=== PATIENT | female | born 1940 | race Caucasian/White ===

== ENCOUNTER 2019-05-11 10:57 | Outpatient (CLI) | payer MEDICARE, SELFPAY | END 2019-05-11 10:58 | disposition home or self-care (01) | LOC: ONCMED 11:01 | PROVIDERS: Family Provider Family Medicine; PCP Family Medicine; Visit Provider Internal Medicine Medical Oncology | DX: Z45.2 Encounter for adjustment and management of vascular access device (principal) | CPT/HCPCS: 96523 ==

== ENCOUNTER 2019-06-22 10:46 | Outpatient (CLI) | payer MEDICARE, SELFPAY ==
--- NOTE | 2019-06-22 11:17 | MM_ITS ---
WS: [id number] LEFT DIGITAL MAMMOGRAPHY WITH CAD CLINICAL INFORMATION: HX OF BREAST CA;RT MASTECTOMY HISTORY: Right mastectomy COMPARISON: May 24, 2018 TECHNIQUE: 3 views of the left breast were obtained. FINDINGS: Scattered fibroglandular densities of the left breast. Vascular calcification. Stable punctate and cl ustered calcifications. No suspicious focal mass, asymmetry, calcifications, or architectural distortion. No evidence of arvin gnancy. MM/[place] [id number] IMPRESSION: BI-RADS: 2-Benign FOLLOW UP: 1 Year Follow-up Recommend return to annual diagnostic mammography.
== END 2019-06-22 10:47 | disposition home or self-care (01) ==
LOC: ONCMED 10:53
PROVIDERS: Family Provider Family Medicine; PCP Family Medicine; Visit Provider Internal Medicine Medical Oncology
DX: Z85.3 Personal history of malignant neoplasm of breast (principal); Z90.11 Acquired absence of right breast and nipple; Z45.2 Encounter for adjustment and management of vascular access device
CPT/HCPCS: 77065; 96523

== ENCOUNTER 2019-08-29 09:24 | Outpatient (CLI) | payer MEDICARE, SELFPAY ==
[2019-08-29 09:51] LABS: Basophils % 0.2 %; Eosinophils # 0.1 10^3/uL (0.0-0.8); Eosinophils % 0.6 %; Hemoglobin 13.4 g/dL (11.5-15.3); Lymphocytes # 1.7 10^3/uL (0.8-4.8); Lymphocytes % 20.9 %; Mean Corpuscular HGB Conc 31.2 g/dL (30.0-36.0); Mean Corpuscular Hemoglobin 29.4 pg (28.0-34.0); Mean Corpuscular Volume 94.3 fL (81-99); Mean Platelet Volume 10.3 fL (7.4-10.4); Neutrophils # 5.5 10^3/uL (1.8-7.7); Neutrophils % 66.1 %; Nucleated Red Blood Cells % 0 %; Platelet Count 332 10^3/cmm (130-400); Red Blood Count 4.56 10^6/uL (4.1-5.3); Red Cell Distribution Width 14.3 % (12.1-15.1); White Blood Count 8.3 10^3/uL (4.0-10.0)
[2019-08-29 10:28] LABS: Carcinoembryonic Antigen 7.6 ng/mL (0.0-4.7)
[2019-08-29 10:40] LABS: Alanine Aminotransferase 9 U/L (0-33); Albumin Level 4.2 g/dL (3.5-5.2); Alkaline Phosphatase 124 IU/L (35-105); Anion Gap 18.4 (5-19); Aspartate Amino Transferase 13 U/L (0-32); Blood Urea Nitrogen 9 mg/dL (8-23); Calcium 10.9 mg/dL (8.5-10.5); Carbon Dioxide 26 mmol/L (22-29); Chloride 98 mmol/L (98-107); Globulin 3.6 g/dL (1.3-4.6); Glucose 108 mg/dL (65-115); Osmolality Calculated 283 mOsm/kg (285-295); Potassium 4.4 mmol/L (3.5-5.1); Sodium 138 mmol/L (136-145); Total Bilirubin 0.3 mg/dL (0.15-1.2); Total Protein 7.8 g/dL (6.6-8.7)
--- NOTE | 2019-08-30 13:30 | ONC FU_ITS ---
Dr. Baron Patient Follow-Up Note Patient: Marta Fraga Unit #: [id number]: 1940 Dicatated By: Kane Baron M.D.Date of Visit:Aug 29, 2019 Onc Med Follow-up/Prog Note Chief Complaint: Colon cancer/breast cancer. 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 She also has been treated for breast cancer. She was admitted to the hospital in October 2011 with suspected neoplasm in the ascending colon. She had been having constipation and hematochezia. CT showed a mass in the ascending colon extending a length of approximately 7 cm, consistent with neoplasm. There was a mild lymphadenopathy within the adjacent mesentery. There was also some question of thickening in the wall of the sigmoid colon. There was no obvious metastatic disease. She was found to have a significantly elevated CEA level at 162 ng/mL. She had attempted colonoscopy but the scope was not able to be advanced beyond the sigmoid colon due to a synchronous lesion in that area. She was then seen by Dr. García in [place] and she underwent hand assisted laparoscopic right hemicolectomy and open low anterior resection on 10/23/11. Pathology in the right colon showed low-grade mucinous adenocarcinoma measuring 6.5 x 5 x 1.7 cm. The tumor was invading through the muscularis propria into the peritoneal fat. There was involvement in 1 of 35 lymph nodes. The sigmoid colon showed diverticulitis with perforation and abscess formation. There were multiple polyps, which included both hyperplastic polyps and adenomas. Within the largest pedunculated polyp there was a well-differentiated invasive adenocarcinoma measuring 2.5 x 1.2 cm. There was invasion into the submucosa. There was no involvement in 28 lymph nodes. She was given adjuvant chemotherapy, initially with modified FOLFOX. However, she experienced severe neurotoxicity with oxaliplatin. It was omitted after the first cycle, and she then continued treatment with 5-FU/leucovorin only. She did receive a total of 12 cycles of treatment, which she completed in May 2012. Following completion of the chemotherapy, she continued followup with Dr. García. She has had multiple polyps on her surveillance colonoscopies, and she was initially placed on a 3-month followup schedule. It was later extended to 6 months, and most recently it was extended to one year. She has additional history of grade 2 infiltrating ductal carcinoma of the right breast, stage IIB, ER/OR negative and HER-2/angel positive. There has been no recurrence of her breast cancer following right modified radical mastectomy followed by adjuvant chemotherapy and prophylactic chest wall radiation, which was completed in 2001. Her other medical illnesses include COPD, osteoporosis, and depression. She has had evidence of vitamin D deficiency. She has history of smoking a pack to a pack and a half of cigarettes daily. She is seen for a scheduled visit. She says she recently had been deathly sick with strep infection and sinus infection. She was treated with antibiotic and steroid, and she is getting better now. She had fever with that illness, that has resolved. She continues to have limited activity tolerance. Her appetite is not real great. Her weight is down a few pounds. She has some night sweating, which is chronic. She says her breathing is not so good. She is on continuous oxygen. She has cough which is productive of grayish-white sputum. She has occasional burning across her chest. She has no GI complaints other than some constipation. Her bowels typically move about every other day. She has urinary frequency and some bladder incontinence. She has chronic pain, and she says she is also been having leg cramps. She has headache off and on. She sometimes has dizziness. She sometimes has numbness/tingling in her legs and feet. Medications: Advair Diskus 1 puff(s) (of 250-50 mcg/dose) Aerosol Powder, Breath Activated Inhalation b.i.d., B-6 1 (100 mg) Tablet Oral daily, B-Complex 1 Tablet Oral daily, Citalopram Hydrobromide 1 (10 mg) Tablet Oral at bedtime, [facility] Magnesium 1 (250 mg) Tablet Oral daily, DilTIAZem HCl ER 1 Tablet (of 120 mg) Capsule SR 12 HR Oral daily, HydroCHLOROthiazide 1 (25 mg) Tablet Oral daily, Multiple Vitamin 1 Tablet Oral daily, ProAir HFA 1 (108 (90 base) mcg/act) Aerosol, solution Inhalation PRN, sinex severe 1 spray(s) Liquid Nasal PRN, Spiriva HandiHaler 1 (18 mcg) Capsule Inhalation daily, Tylenol 1 - 2 (325 mg) Tablet Oral q 4 hours PRN, Vitamin D 1 (2000 Units) Capsule Oral daily Allergies: Codeine Sulfate Review of Systems: Constitutional - Her energy level is low. She is doing some light house work. Her appetite is poor and weight is down a few pounds from last visit. She had a fever a few weeks ago due to illness. No chills or hot flashes. She has chronic night sweats. ECOG score is 1, ENMT - No sinus congestion/drainage. No mouth sores. No sore throat or difficulty swallowing, Hematologic/Lymphatic - No abnormal bruising or bleeding, Respiratory - She gets short of breath with any activity. She wears continuous oxygen. She has a cough, it is productive in the mornings of a thick grayish phelgm. No pleuritic pain or hemoptysis, Cardiovascular - No angina pain. No palpitations, Gastrointestinal - No nausea or vomiting. No heartburn or acid reflux. No diarrhea or constipation. No blood in the stool or black stools, Genitourinary (F) - No dysuria or hematuria. She has urinary frequency. She has occasional incontinence, Musculoskeletal - She has chronic pain. She has been having leg cramps, Integumentary - No skin complications, Neurologic - She has occasional headache or dizziness. She has occasional numbness and tingling in her feet, Psychiatric - She is anxiety or depression. She has some difficulty sleeping. Vital Signs: Performed on Aug 29, 2019 10:29 Height - 67.00 in Weight - 200.0 lbs (LOW) BSA - 2.02 sq.m BMI - 31.32 (HIGH) Temperature - 97.4 F (LOW) Pulse - 88 /min Respiration - 24 /min BP - 119/66 mm(hg) O2 Sat - 94 % (LOW) Pain - 0 Physical Examination: Constitutional - She appears chronically ill, and she appears short of breath with effort, Eyes - Sclerae nonicteric. Conjunctivae clear, ENMT - No lesions noted in the oral cavity, Hematologic/Lymphatic - No cervical or clavicular adenopathy, Respiratory - Lungs sound clear with markedly diminished air movement bilaterally, Cardiovascular - Heart rhythm is regular. There is no murmur, gallop, or rub noted, Breasts - The right chest wall shows no lesions. The left breast shows no mass. There is no axillary adenopathy, Abdomen - Soft. Liver and spleen are not enlarged. There is no abdominal mass or ascites noted. There is no inguinal adenopathy, Extremities - There are mild venous stasis changes. There is currently no edema, Neurologic - No focal neurologic deficits noted. Lab/Imaging: Test performed on Aug 29, 2019 09:35 Sodium 138 mmol/L Potassium 4.4 mmol/L Chloride 98 mmol/L CO2 26 mmol/L Anion Gap 18.4 BUN 9 mg/dL Creatinine 0.6 mg/dL Cr Clearance (Est) 112.4600 mL/min Glucose 108 mg/dL Calcium 10.9 mg/dL Protein, Total 7.8 g/dL Albumin 4.2 g/dL Globulin 3.6 g/dL Bilirubin, Total 0.3 mg/dL ALT (SGPT) 9 U/L AST (SGOT) 13 U/L Alkaline Phosphatase 124 IU/L WBC 8.3 10 3/uL RBC 4.56 10 6/uL HGB 13.4 g/dL HCT 43.0 % MCV 94.3 fL MCH 29.4 pg MCHC 31.2 g/dL RDW 14.3 % Platelet Count 332 10 3/cmm MPV 10.3 fL Neutrophils 5.5 10 3/uL Lymphocytes 1.7 10 3/uL Monocytes 1.0 10 3/uL Eosinophils 0.1 10 3/uL Basophils 0.0 10 3/uL Neutrophil % 66.1 % Lymphocyte % 20.9 % Monocyte % 12.0 % Eosinophil % 0.6 % Basophils % 0.2 % CEA 7.6 ng/mL Impression: 1. Patient with low-grade adenocarcinoma the ascending colon, stage IIIB, with synchronous adenocarcinoma of the sigmoid colon, stage I. 2. Treatment included hand-assisted laparoscopic right hemicolectomy and an open low anterior resection in October 2011 followed by adjuvant chemotherapy, completed in May 2012. 3. She has had multiple polyps on surveillance colonoscopy, and she has continued close surveillance. 4. She has a prior history of grade 2 infiltrating duct carcinoma the right breast, stage IIB, ER/OR negative and HER-2/angel positive. Treatment included right modified radical mastectomy followed by adjuvant chemotherapy and prophylactic chest wall radiation, completed in 2001. Her other medical illnesses include: 5. COPD with continued smoking. 6. Osteoporosis. 7. Vitamin D deficiency. 8. Anxiety/depression. During follow-up she has had somewhat marginal performance status, mainly due to underlying COPD. She has had a mildly elevated CEA level, which I have assumed is related to her smoking history. Thus far there has been no documented recurrence of the breast cancer or colon cancer. Plan: She remains on observation/expectant management. I will see her again in one year. Signed By: Kane Baron M.D. <<Signature on File>>
== END 2019-08-29 09:25 | disposition home or self-care (01) ==
LOC: ONCMED 09:26
PROVIDERS: Family Provider Family Medicine; PCP Family Medicine; Visit Provider Internal Medicine Medical Oncology
DX: Z08 Encounter for follow-up examination after completed treatment for malignant neoplasm (principal); Z85.3 Personal history of malignant neoplasm of breast; Z85.038 Personal history of other malignant neoplasm of large intestine; R97.0 Elevated carcinoembryonic antigen [CEA]; Z90.11 Acquired absence of right breast and nipple; Z92.21 Personal history of antineoplastic chemotherapy; Z92.3 Personal history of irradiation; J44.9 Chronic obstructive pulmonary disease, unspecified; F17.210 Nicotine dependence, cigarettes, uncomplicated; M81.0 Age-related osteoporosis without current pathological fracture; E55.9 Vitamin D deficiency, unspecified; F41.8 Other specified anxiety disorders; Z86.010 Personal history of colon polyps
CPT/HCPCS: 36591; 80053; 82378; 85025; G0463

== ENCOUNTER 2019-10-25 13:31 | Outpatient (CLI) | payer MEDICARE, SELFPAY | END 2019-10-25 13:32 | disposition home or self-care (01) | LOC: ONCMED 13:34 | PROVIDERS: PCP Family Medicine; Visit Provider Nurse Practitioner | DX: Z45.2 Encounter for adjustment and management of vascular access device (principal) | CPT/HCPCS: 96523 ==

== ENCOUNTER 2019-11-21 11:00 | Outpatient (CLI) | payer MEDICARE, SELFPAY | END 2019-11-21 11:01 | disposition home or self-care (01) | LOC: ONCMED 11:07 | PROVIDERS: PCP Family Medicine; Visit Provider Internal Medicine Medical Oncology | DX: Z45.2 Encounter for adjustment and management of vascular access device (principal) | CPT/HCPCS: 96523 ==

== ENCOUNTER 2020-01-09 10:51 | Outpatient (CLI) | payer MEDICARE, SELFPAY | END 2020-01-09 10:52 | disposition home or self-care (01) | LOC: ONCMED 10:53 | PROVIDERS: PCP Family Medicine; Visit Provider Internal Medicine Medical Oncology | DX: Z45.2 Encounter for adjustment and management of vascular access device (principal) | CPT/HCPCS: 96523 ==

== ENCOUNTER 2020-02-28 11:02 | Outpatient (CLI) | payer MEDICARE, SELFPAY | END 2020-02-28 11:03 | disposition home or self-care (01) | LOC: ONCMED 11:04 | PROVIDERS: PCP Family Medicine; Visit Provider Internal Medicine Medical Oncology | DX: Z45.2 Encounter for adjustment and management of vascular access device (principal) | CPT/HCPCS: 96523 ==

== ENCOUNTER 2020-03-26 10:38 | Outpatient (CLI) | payer MEDICARE, SELFPAY | END 2020-03-26 10:39 | disposition home or self-care (01) | LOC: ONCMED 10:42 | PROVIDERS: PCP Family Medicine; Visit Provider Internal Medicine Medical Oncology | DX: Z45.2 Encounter for adjustment and management of vascular access device (principal) | CPT/HCPCS: 96523 ==

== ENCOUNTER → 2020-07-19 09:09 | Outpatient (BNVA) | payer MEDICARE, SELFPAY | PROVIDERS: PCP Family Medicine; Visit Provider Surgery | DX: Z20.828 Contact with and (suspected) exposure to other viral communicable diseases (principal) | CPT/HCPCS: 87635 ==

== ENCOUNTER 2020-07-25 08:58 | Day surgery (SDC) | payer MEDICARE, SELFPAY ==
[2020-07-24 15:00] VITALS: BMI 30.5
--- NOTE | 2020-07-25 | SCC_ITS ---
Procedure Done: 1. Removal of malfunctioning/occluded Port-A-Cath. 2. Placement of new Port-A-Cath into the left subclavian vein with intraoperative fluoroscopy interpretation. 56.7 seconds of fluoroscopic guidance, for a cumulative dose of 4.72 mGy, was provided to Dr. Barry by the radiology department. C-arm images of the chest were saved for the patient's permanent record. PILY
--- NOTE | 2020-07-25 09:20 | P.HPUD_ITS ---
Surgery/Procedure H&P Update DATE OF PROCEDURE: July 25, 2020 DATE H&P PERFORMED: 07/16/20 H&P UPDATE INFORMATION: No changes to prior documentation PLANNED PROCEDURE: Operation Date: 07/25/20 10:25 Proposed Procedures p Portacath Removal 60463 I87.8 K43.2 T82.519A(Not Applicable) - Edgar Barry MD s Portacath Placement 66887 I87.8 K43.2 T82.519A(Not Applicable) - Edgar Barry MD
--- NOTE | 2020-07-25 09:20 | W.PM.OPSUD ---
Surgery/Procedure H&P Update DATE OF PROCEDURE: July 25, 2020 DATE H&P PERFORMED: 07/16/20 H&P UPDATE INFORMATION: No changes to prior documentation PLANNED PROCEDURE: Operation Date: 07/25/20 10:25 Proposed Procedures p Portacath Removal 29540 I87.8 K43.2 T82.519A(Not Applicable) - Edgar Barry MD s Portacath Placement [id number] I87.8 K43.2 T82.519A(Not Applicable) - Edgar Barry MD
[2020-07-25 09:25] VITALS: BP 151/65; PULSE 87; RESP 18; TEMP 37.1; O2SAT 96
--- NOTE | 2020-07-25 09:55 | ANES.PREANE2 ---
Pre-Anesthetic Assessment Pre-Anesthetic Assessment: Height/Weight: Height 1.7 m Weight 88.451 kg Temp Pulse Resp BP Pulse Ox 98.7 F 87 18 151/65 96 07/25/20 09:25 07/25/20 09:25 07/25/20 09:25 07/25/20 09:25 07/25/20 09:25 Preop Diagnosis: malignant neoplasm Proposed Procedure: Operation Date: 07/25/20 10:25 Proposed Procedures p Portacath Removal 29196 I87.8 K43.2 T82.519A(Not Applicable) - Edgar Barry MD s Portacath Placement 50229 I87.8 K43.2 T82.519A(Not Applicable) - Edgar Barry MD Familial anesthetic complications: none Was Beta Mina taken within 24 hours: N/A Was Clonidine taken within 24 hours: N/A Last intake: NPO Social: Social History: Tobacco and No alcohol Exam: Pre-Anes Outpt Exam: alert, oriented x 3, clear to auscultation bilaterally and regular rate & rhythm Airway: Cervical ROM: WNL MP: 3 Dentition: False Pulmonary: Pulmonary: COPD (O2 ) CV/HEM: CV/HEM: Afib (on diltiazem) Anesthetic Plan: ASA status: 4 Anesthesia: MAC Risk of > 500 ml blood loss (7ml/kg in children): No PFSH Anesthesia PFSH: Social History (Updated 07/24/20 @ 14:53 by Nadine Parra) Smoking and tobacco status: current every day smoker cigarettes Number of cigarettes per day: >20 Data Anesthesia Cardiac Studies: No Data to Display
[2020-07-25] MEDS: sodium chloride 0.9% 1,000 ML 30 ML IV (10:13)
--- NOTE | 2020-07-25 10:40 | SC_ITS ---
WS: [id number] Exam: C-arm FL for CVA [id number] Date/Time of Exam: 07/25/2020 10:40 AM Reason For Exam: port a cath Limited AP C-arm image of the upper left chest is submitted for evaluation. A left subclavian port has been placed and appears to end in the region of the lower one third of the SVC. SC/C-arm FL for CVA [id number] IMPRESSION: 1. Left subclavian port probably ending in the region of the lower one third of the SVC. No other significant finding on this limited image.
--- NOTE | 2020-07-25 10:51 | SUR.OPER ---
1040 port a cath removed and inspected by dr diaz. disposed of in biohazard
--- NOTE | 2020-07-25 10:58 | P.OP_ITS ---
Operative Report Date of procedure: July 25, 2020 Pre-op Diagnosis: 1. Mechanical complication of Port-A-Cath.2. Poor peripheral venous acces Post-op diagnosis: same Procedure Done: 1. Removal of malfunctioning/occluded Port-A-Cath. 2. Placement of new Port-A-Cath into the left subclavian vein with intraoperative fluoroscopy interpretation. Specimens removed/disposition: None sent. Surgeon: Edgar Barry Anesthesia: MAC Estimated blood loss (mL): 5 Complications: None. Condition: stable Disposition: same day Procedure: The patient was brought to the Operating Room and was placed in a supine position on the operating room table. A monitored anesthetic was induced. The anterior surface of the chest and neck were prepped and draped in a sterile fashion. A combination of 1% lidocaine with 1 to 100,000 parts epinephrine and 0.5% bupivacaine was used for local anesthesia throughout the procedures. The previous transverse scar just above the Port-A-Cath in the left subclavian region was reopened using a scalpel. Cautery was used to divide the subcutaneous tissue and the Port-A-Cath hub and tubing were exposed. A small incision was then made up underneath the clavicle over the tract of the Port-A-Cath tubing. The tubing was disconnected from the port and was brought up through the smaller incision. The J-wire was passed down the tubing in an attempt to keep the same site in the subclavian vein accessed. Despite multiple attempts, it became clear that the Port-A-Cath tubing was occluded and the procedure was finally abandoned. The old tubing was removed. The old Port-A-Cath was then removed from its pocket using cautery. The fibrous capsule that had surround the port was also excised using cautery and the Port-A-Cath site was irrigated. The left subclavian vein was reaccessed on the first pass with a needle and syringe as evidenced by the return of dark nonpulsatile blood. The J-wire was passed down the needle and the needle was removed. The C-arm was positioned and showed that the wire was actually extending up the left internal jugular vein. Under fluoroscopy the wire was withdrawn and was eventually manipulated down the superior vena cava. The new Port-A-Cath tubing was passed from the incision through the subcutaneous layer to the exit point of the J-wire. The tubing was attached to the port and was cut to an appropriate length. The introducer and sheath were passed over the J-wire, and the introducer and J-wire were removed. The Port-A-Cath tubing was passed down the sheath, which was torn away. The C- arm was positioned and showed good placement of the Port-A-Cath tubing tip in the superior vena cava. The port aspirated easily and flushed well with hep flush solution. The port was sewn in place with some interrupted sutures of 3-0 PDS. The transverse incision was closed at the dermis using a single inverted suture of 3-0 Vicryl and the skin was approximated using a running subcuticular suture of 4-0 Vicryl. The small incision under the clavicle at the previous insertion site of the J wire was closed using a single inverted suture of 4-0 Vicryl. Benzoin and Steri-Strips were placed over the incisions and a sterile bandage followed. The patient was taken to the recovery area in stable condition postoperatively. INTRAOPERATIVE FLUOROSCOPY FINDINGS: Intraoperative fluoroscopic images of a Port-A-Cath placement were reviewed. An initial image reveals a J-wire entering the left subclavian region and extending up the left internal jugular vein. Subsequent images revealed the wire extending down the vena cava. Subclavian vein and extending down the vena cava. Further images reveal a Port-A-Cath on the left side of the chest with its tubing tip in good location in the superior vena cava. No obvious pneumothorax is identified.
[2020-07-25 11:03] VITALS: BP 152/61; PULSE 94; RESP 16; TEMP 36.6; O2SAT 96
[2020-07-25 11:05] VITALS: BP 152/67; PULSE 97; RESP 20; O2SAT 93
[2020-07-25 11:11] VITALS: BP 145/62; PULSE 92; RESP 20; TEMP 36.8; O2SAT 95
[2020-07-25 11:25] VITALS: BP 141/76; PULSE 95; RESP 18; O2SAT 93
[2020-07-25 11:55] VITALS: BP 141/62; PULSE 87; RESP 20; TEMP 36.7; O2SAT 92
[2020-07-25] MEDS: ondansetron 2 mg/ML SDV 2 mL 4 MG IVP (11:57)
--- NOTE | 2020-07-25 20:52 | ANE.PACU2 ---
Inpatient post-anesthesia follow up: Airway intact: Yes Vital signs: Temperature 98.0 F Pulse Rate 87 Respiratory Rate 20 Blood Pressure 141/62 Pulse Oximetry 92 Oxygen Delivery Me thod Nasal Cannula Oxygen Flow Rate 3 Fraction of Inspir ed Oxygen Hydration adequate: Yes Nausea and vomiting: No Pain level: 2 Mental status: Baseline
== END 2020-07-25 12:20 | disposition home or self-care (01) ==
PROVIDERS: PCP Family Medicine; Visit Provider Surgery
PROC: (CPT 36589; principal; 2020-07-25 10:15)
PROC: (CPT 36582; 2020-07-25 10:15)
DX: T82.519A Breakdown (mechanical) of unspecified cardiac and vascular devices and implants, initial encounter (principal); Z85.038 Personal history of other malignant neoplasm of large intestine; Z85.3 Personal history of malignant neoplasm of breast; J43.9 Emphysema, unspecified; M81.0 Age-related osteoporosis without current pathological fracture; F17.210 Nicotine dependence, cigarettes, uncomplicated
CPT/HCPCS: 36582; 12345; 77001; C1788; J0690; J2405; J2704; J3010; J3490; J7030

== ENCOUNTER 2020-08-21 09:32 | Outpatient (CLI) | payer MEDICARE, SELFPAY ==
--- NOTE | 2020-08-21 09:40 | MM_ITS ---
WS: [id number] DIAGNOSTIC LEFT DIGITAL MAMMOGRAM WITH CAD HISTORY: HX OF BREAST CA;RT MASTECTOMY COMPARISON: None available. Technique: CC, MLO and ML views. Breast composition: There are scattered areas of fibroglandular density. Benign round and broad calc ifications are stable. No mass or distortion. MM/[place] [id number] IMPRESSION: BI-RADS: 2-Benign FOLLOW UP: 1 Year Follow-up
== END 2020-08-21 09:33 | disposition home or self-care (01) ==
PROVIDERS: Absent Provider Internal Medicine Medical Oncology; PCP Family Medicine; Visit Provider Nurse Practitioner
DX: Z45.2 Encounter for adjustment and management of vascular access device (principal); Z85.3 Personal history of malignant neoplasm of breast
CPT/HCPCS: 77065; 96523

== ENCOUNTER 2020-09-10 09:47 | Outpatient (CLI) | payer MEDICARE, SELFPAY ==
[2020-09-10 12:42] LABS: Basophils % 0.3 %; Eosinophils # 0.1 10^3/uL (0.0-0.8); Hematocrit 40.1 % (37.0-47.0); Hemoglobin 12.7 g/dL (11.5-15.3); Lymphocytes # 1.9 10^3/uL (0.8-4.8); Lymphocytes % 24.4 %; Mean Corpuscular HGB Conc 31.7 g/dL (30.0-36.0); Mean Corpuscular Hemoglobin 30.5 pg (28.0-34.0); Mean Corpuscular Volume 96.2 fL (81-99); Mean Platelet Volume 10.6 fL (7.4-10.4); Monocytes # 0.9 10^3/uL (0.2-0.9); Monocytes % 11.8 %; Neutrophils # 4.88 10^3/uL (1.8-7.7); Neutrophils % 62.4 %; Nucleated Red Blood Cells % 0 %; Platelet Count 314 10^3/cmm (130-400); Red Blood Count 4.17 10^6/uL (4.1-5.3); Red Cell Distribution Width 13.7 % (12.1-15.1); White Blood Count 7.8 10^3/uL (4.0-10.0)
[2020-09-10 13:20] LABS: 25 Hydroxy Vitamin D 17 ng/mL (30-100); Alanine Aminotransferase 8 U/L (0-33); Albumin Level 3.7 g/dL (3.5-5.2); Alkaline Phosphatase 116 IU/L (35-105); Anion Gap 12.1 (5-19); Aspartate Amino Transferase 13 U/L (0-32); Blood Urea Nitrogen 10 mg/dL (8-23); Calcium 10.3 mg/dL (8.5-10.5); Carbon Dioxide 30 mmol/L (22-29); Chloride 100 mmol/L (98-107); Globulin 3.1 g/dL (1.3-4.6); Glucose 88 mg/dL (65-115); Osmolality Calculated 284 mOsm/kg (285-295); Potassium 4.1 mmol/L (3.5-5.1); Sodium 138 mmol/L (136-145); Total Bilirubin 0.4 mg/dL (0.15-1.2); Total Protein 6.8 g/dL (6.6-8.7)
[2020-09-10 14:36] LABS: Carcinoembryonic Antigen 6.4 ng/mL (0.0-4.7)
--- NOTE | 2020-09-14 11:31 | ONC FU_ITS ---
Dr. Baron Patient Follow-Up Note Patient: Marta Fraga Unit #: [id number]: [id number] Dicatated By: Kane Baron M.D.Date of Visit:September 10, 2020 Onc Med Follow-up/Prog Note Chief Complaint: Colon cancer/breast cancer. 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 She also has been treated for breast cancer. She was admitted to the hospital in October 2011 with suspected neoplasm in the ascending colon. She had been having constipation and hematochezia. CT showed a mass in the ascending colon extending a length of approximately 7 cm, consistent with neoplasm. There was a mild lymphadenopathy within the adjacent mesentery. There was also some question of thickening in the wall of the sigmoid colon. There was no obvious metastatic disease. She was found to have a significantly elevated CEA level at 162 ng/mL. She had attempted colonoscopy but the scope was not able to be advanced beyond the sigmoid colon due to a synchronous lesion in that area. She was then seen by Dr. García in [place] and she underwent hand assisted laparoscopic right hemicolectomy and open low anterior resection on 10/23/11. Pathology in the right colon showed low-grade mucinous adenocarcinoma measuring 6.5 x 5 x 1.7 cm. The tumor was invading through the muscularis propria into the peritoneal fat. There was involvement in 1 of 35 lymph nodes. The sigmoid colon showed diverticulitis with perforation and abscess formation. There were multiple polyps, which included both hyperplastic polyps and adenomas. Within the largest pedunculated polyp there was a well-differentiated invasive adenocarcinoma measuring 2.5 x 1.2 cm. There was invasion into the submucosa. There was no involvement in 28 lymph nodes. She was given adjuvant chemotherapy, initially with modified FOLFOX. However, she experienced severe neurotoxicity with oxaliplatin. It was omitted after the first cycle, and she then continued treatment with 5-FU/leucovorin only. She did receive a total of 12 cycles of treatment, which she completed in May 2012. Following completion of the chemotherapy, she continued followup with Dr. García. She has had multiple polyps on her surveillance colonoscopies, and she was initially placed on a 3-month followup schedule. It was later extended to 6 months, and most recently it was extended to one year. She has additional history of grade 2 infiltrating ductal carcinoma of the right breast, stage IIB, ER/MN negative and HER-2/angel positive. There has been no recurrence of her breast cancer following right modified radical mastectomy followed by adjuvant chemotherapy and prophylactic chest wall radiation, which was completed in 2001. Her other medical illnesses include COPD, osteoporosis, and depression. She has had evidence of vitamin D deficiency. She has history of smoking a pack to a pack and a half of cigarettes daily. She is seen for a scheduled visit. She reports having a lot of mental fatigue related to her son having methamphetamine addiction. She is fighting depression over that. She continues to have very limited activity tolerance. She has a little bit of housework. ECOG score is 2. Appetite is variable. She says she does eat. She does not have fever, night sweats, or hot flashes. She has shortness of breath and she is on continuous oxygen. She says her breathing is about the same. She says she has no more cough than usual. She does not complain of chest pain. She has occasional acid reflux. Her bowels fluctuate between diarrhea and constipation. She is scheduled to have a colonoscopy in October. Bladder function remains adequate. She has some chronic pain, particularly in the lower extremities, and she also complains that she has been having swelling in her legs and feet. She has some orthostatic lightheadedness. She has numbness and tingling in her hands and feet. Medications: Advair Diskus 1 puff(s) (of 250-50 mcg/dose) Aerosol Powder, Breath Activated Inhalation b.i.d., B-6 1 (100 mg) Tablet Oral daily, B-Complex 1 Tablet Oral daily, Citalopram Hydrobromide 1 (10 mg) Tablet Oral at bedtime, [facility] Magnesium 1 (250 mg) Tablet Oral daily, DilTIAZem HCl ER 1 Tablet (of 120 mg) Capsule SR 12 HR Oral daily, HydroCHLOROthiazide 1 (25 mg) Tablet Oral daily, Multiple Vitamin 1 Tablet Oral daily, ProAir HFA 1 (108 (90 base) mcg/act) Aerosol, solution Inhalation PRN, sinex severe 1 spray(s) Liquid Nasal PRN, Spiriva HandiHaler 1 (18 mcg) Capsule Inhalation daily, Tylenol 1 - 2 (325 mg) Tablet Oral q 4 hours PRN, Vitamin D 1 (2000 Units) Capsule Oral daily Allergies: Codeine Sulfate Vital Signs: Performed on September 10, 2020 12:17 Height - 67.00 in Weight - 200.2 lbs (HIGH) BSA - 2.02 sq.m BMI - 31.36 (HIGH) Temperature - 98.7 F Pulse - 91 /min Respiration - 18 /min BP - 156/78 mm(hg) (HIGH) O2 Sat - 92 % (LOW) Pain - 0 Fatigue - 6 Physical Examination: Constitutional - She appears chronically ill, Eyes - Sclerae nonicteric. Conjunctivae clear, ENMT - No lesions noted in the oral cavity, Hematologic/Lymphatic - No cervical, clavicular, or axillary adenopathy, Respiratory - Lungs show diminished air movement bilaterally. There is mild expiratory wheezing, Cardiovascular - Heart rhythm is regular. There is a II/ systolic murmur. There is no gallop or rub noted, Abdomen - Soft. Liver and spleen are not enlarged. There is no abdominal mass or ascites noted. There is no inguinal adenopathy, Extremities - There are mild venous stasis changes. There is mild lower extremity edema, Neurologic - No focal neurologic deficits noted. Lab/Imaging: Test performed on September 10, 2020 10:10 Sodium 138 mmol/L Vitamin D (25-Hydroxy), Total 17 ng/mL Potassium 4.1 mmol/L Chloride 100 mmol/L CO2 30 mmol/L Anion Gap 12.1 BUN 10 mg/dL Creatinine 0.7 mg/dL Cr Clearance (Est) 94.9500 mL/min Glucose 88 mg/dL Osmolality - Calculated 284 mOsm/kg Calcium 10.3 mg/dL Protein, Total 6.8 g/dL Albumin 3.7 g/dL Globulin 3.1 g/dL Bilirubin, Total 0.4 mg/dL ALT (SGPT) 8 U/L AST (SGOT) 13 U/L Alkaline Phosphatase 116 IU/L WBC 7.8 10 3/uL RBC 4.17 10 6/uL HGB 12.7 g/dL HCT 40.1 % MCV 96.2 fL MCH 30.5 pg MCHC 31.7 g/dL RDW 13.7 % Platelet Count 314 10 3/cmm MPV 10.6 fL Neutrophils 4.88 10 3/uL Lymphocytes 1.9 10 3/uL Monocytes 0.9 10 3/uL Eosinophils 0.1 10 3/uL Basophils 0.0 10 3/uL Neutrophil % 62.4 % Lymphocyte % 24.4 % Monocyte % 11.8 % Eosinophil % 1.0 % Basophils % 0.3 % NRBC % 0 % CEA 6.4 ng/mL Problem List: 1. Low-grade adenocarcinoma the ascending colon, stage IIIB, with synchronous adenocarcinoma of the sigmoid colon, stage I. 2. She has had multiple polyps on surveillance colonoscopy, and she has continued close surveillance. 3. She has a prior history of grade 2 infiltrating duct carcinoma the right breast, stage IIB, ER/MN negative and HER-2/angel positive. Treatment included right modified radical mastectomy followed by adjuvant chemotherapy and prophylactic chest wall radiation, completed in 2001. 4. COPD with continued smoking. 5. Osteoporosis. 6. Vitamin D deficiency. 7. Anxiety/depression. Problems Addressed with this Encounter and Plan: 1. Patient with low-grade adenocarcinoma the ascending colon, stage IIIB, with synchronous adenocarcinoma of the sigmoid colon, stage I. Treatment included hand-assisted laparoscopic right hemicolectomy and an open low anterior resection in October 2011 followed by adjuvant chemotherapy, completed in May 2012. She has had multiple polyps on surveillance colonoscopy, and she has continued close surveillance. However, thus far during follow-up, there has been no evidence of recurrence of the colon cancer. She remains on observation/expectant management. I will see her again in one year. 2. She has a prior history of grade 2 infiltrating duct carcinoma the right breast, stage IIB, ER/MN negative and HER-2/angel positive. Treatment included right modified radical mastectomy followed by adjuvant chemotherapy and prophylactic chest wall radiation, completed in 2001. There has been no evidence of recurrence of the breast cancer. She continues surveillance with yearly unilateral left diagnostic mammogram. Signed By: Kane Baron M.D. <<Signature on File>>
== END 2020-09-10 09:48 | disposition home or self-care (01) ==
LOC: ONCMED 09:50
PROVIDERS: PCP Family Medicine; Visit Provider Internal Medicine Medical Oncology
DX: Z08 Encounter for follow-up examination after completed treatment for malignant neoplasm (principal); Z85.038 Personal history of other malignant neoplasm of large intestine; Z85.3 Personal history of malignant neoplasm of breast; J44.9 Chronic obstructive pulmonary disease, unspecified; F17.210 Nicotine dependence, cigarettes, uncomplicated; M81.0 Age-related osteoporosis without current pathological fracture; E55.9 Vitamin D deficiency, unspecified; F41.9 Anxiety disorder, unspecified; F32.9 Major depressive disorder, single episode, unspecified; Z79.899 Other long term (current) drug therapy
CPT/HCPCS: 36591; 80053; 82306; 82378; 85025; 99214

== ENCOUNTER 2020-11-11 11:12 | Emergency (ER) | payer MEDICARE, SELFPAY ==
--- NOTE | 2020-11-11 | XRR_ITS ---
[facility] Final Radiology Report Call: [phone] assistance Online chat: [email or web address] Name: BIRGIT BEAULIEU Age: 80Years F Date: 11/11/2020 SSN: -- : 1940 Study: XR FOREARM Requesting Physician: Love Kaur Images: 2 Add?l Studies: Provided Clinical History: PROCEDURE INFORMATION: Exam: XR Right Forearm Exam date and time: 11/11/2020 12:45 PM Age: 80 years old Clinical indication: Injury or trauma; Blunt trauma (contusions or hematomas); Arm, lower; Right; Injury details: Fall today, RT. Distal forearm pain and deformity/swelling. TECHNIQUE: Imaging protocol: XR Right forearm. Views: 2 views. COMPARISON: OT C-arm [place] for CVA [id number] 07/25/2020 10:44 AM FINDINGS: Bones/joints: There is a comminuted fracture of the distal right radius which extends to the radiocarpal joint. There is dorsal displacement of the distal fracture fragment. There is also a fracture of the distal ulnar diaphysis and ulnar styloid. There is osteopenia. Soft tissues: There is soft tissue swelling at the fracture site. IMPRESSION: There are fractures of the distal radius and ulna. Thank you for allowing us to participate in the care of your patient. Dictated and Authenticated by: Joe Sorensen MD 11/11/2020 1:47 PM Central Time ([place] & [place]) PILY
[2020-11-11 11:17] VITALS: BP 135/79; PULSE 78; RESP 22; TEMP 36.3; O2SAT 94; BMI 29.1
[2020-11-11] MEDS: HYDROcodone-acetaminophen 7.5-325 mg Tablet 1 TAB PO (14:16)
--- NOTE | 2020-11-11 14:17 | W.ED.EXTPRO ---
HPI - Extremity Problem General: Chief complaint: Extremity Injury, Upper Stated complaint: Fall, R arm pain Time Seen by Provider: 11/11/20 13:29 Source: patient Mode of arrival: ambulatory Limitations: no limitations History of Present Illness: HPI Narrative: 80 yo female patient presents to ER with right wrist pain. Pt states she tripped over cord and landed on her arm. Pt states she did not hit head. denies bein on blood thinners. denies loc denies neck pain. Associated symptoms: Deny chest pain, fever(s) or rash Review of Systems Const: Denies: fever(s), chills, body aches, change in appetite, change in weight, fatigue, malaise or diaphoresis Eyes: Denies: change in vision, blurry vision, blind spots, photophobia, eye discomfort, eye discharge, eye redness, floaters or seeing flashes ENMT: Denies: throat pain, uvular edema, enlarged tonsils, odynophagia, hoarseness, mouth pain, swelling of lips/tongue, oral sores, bleeding gums, dental pain, dry mouth, ear or mastoid pain, ear discharge, change in hearing, tinnitus, disequilibrium, nasal discharge, nasal congestion, post nasal drip or sinus pain Card: Denies: chest pain, palpitations, irregular heart rhythm, edema, swelling of feet/ankles, lightheadedness, syncope, pre-syncope, dyspnea on exertion, orthopnea, leg pain with exertion or acrocyanosis Resp: Denies: dyspnea, productive cough, non-productive cough, wheezing, stridor, pain on inspiration, change in phlegm color, hemoptysis or chest congestion GI: Denies: abdominal pain, nausea, vomiting, hematemesis, dysphagia, diarrhea, constipation, GI cramping, change in bowel habits or rectal pain : Denies: flank pain, difficulty voiding, dysuria, urinary frequency, urinary urgency, urinary hesitancy or hematuria Musc: Reports: extremity pain; Denies: neck pain, back pain, extremity swelling, joint pain, joint swelling, joint redness, joint warmth or deformity Skin/Breast: Denies: rash, pruritus, erythema, sores, new lesions, changes in skin color or dry skin Neuro: Denies: headache(s), numbness in extremities, weakness in extremities, sensory changes, lack of coordination, difficulty walking, frequent falls, dizziness, vertigo, confusion, behavioral changes, Slurred speech present, difficulty communicating thoughts or seizure-like activity Psych: Denies: anxiety, depression, suicidal ideation or homicidal ideation Endo: Denies: polyuria, polydipsia, tired all the time, cold intolerance, excessive sweating, flushing, hot flashes or heat intolerance Fernando/Lymph: Denies: easy bruising, easy bleeding, petechiae, purpura, enlarged lymph nodes or tender lymph nodes All/Imm: Denies: urticaria, throat swelling, tongue swelling, facial swelling, acute wheezing or itchy eyes PFSH ED PFSH: Social History Smoking and tobacco status: current every day smoker cigarettes Physical Exam Const: COMMON NORMALS: no acute distress, patient oriented x3, healthy appearing, alert and well nourished GENERAL APPEARANCE: cooperative, comfortable, well kempt and well developed; not ill appearing ORIENTATION/CONSCIOUSNESS: Yes awake, Yes oriented to person, Yes oriented to place and Yes oriented to time HENMT: COMMON NORMALS: normocephalic, atraumatic, hearing grossly normal bilaterally, external ears normal, EAC's normal, TM's normal bilaterally, Normal external nose present, Normal nasal mucous membranes and turbinates present and moist oral mucous membranes HEAD & SCALP: normal to inspection, normocephalic and atraumatic FACE & SINUS: normal facial exam, sinuses nontender and face symmetric NOSE: Normal external nose present, Normal nares present, Normal nasal mucous membranes and turbinates present, No nasal discharge present and Abnormal external nose present EXTERNAL EAR: Yes external ears normal and Yes mastoids normal EXTERNAL AUDITORY CANAL: EAC's normal TYMPANIC MEMBRANE: TM's normal bilaterally MOUTH: Normal oral and palatal mucosa present, lip normal, tongue normal and Normal salivary glands and ducts present THROAT: no uvular edema Eye: COMMON NORMALS: Equal, round and reactive pupils present, EOMs intact bilaterally, conjunctivae normal, no scleral icterus and no papilledema GENERAL EYE: appearance normal, both eyes and all related structures EYELID: eyelids normal CONJUNCTIVA: Yes conjunctivae normal SCLERA: sclerae normal CORNEA: Yes corneas normal PUPIL: Yes Equal, round and reactive pupils present DIRECT OPHTHALMOSCOPY: Yes no papilledema Neck/C-Spine: COMMON NORMALS: full ROM, no lymphadenopathy, supple, no meningeal signs, no JVD and Thyroid normal GENERAL: Yes normal visual inspection and Yes trachea midline THYROID: Thyroid normal CERVICAL SPINE: Yes cervical ROM normal Lymph: LYMPHATIC: no lymphadenopathy noted and no lymphedema noted Chest: COMMONS NORMALS: normal inspection of the chest and normal palpation of entire chest wall Resp: COMMON NORMALS: normal respiratory effort, No retractions, No use of accessory muscles and clear to auscultation bilaterally EFFORT & INSPECTION: Yes able to speak in complete sentences and Yes symmetric chest movement AUSCULTATION: clear to auscultation bilaterally Cardio: COMMON NORMALS: no JVD, regular rate and regular rhythm RATE: regular rate RHYTHM: regular rhythm GI: COMMON NORMALS: Normal to inspection, nondistended, normoactive bowel sounds present, Soft to palpation, non-tender, No hepatosplenomegaly present, no masses and no bruits INSPECTION: Yes normal to inspection AUSCULTATION: Yes normoactive bowel sounds PALPATION: Yes Soft to palpation and Yes No hepatosplenomegaly present PERCUSSION: normal to percussion RECTAL EXAM: deferred : COMMON NORMALS: Yes no CVA tenderness, Yes normal external appearance, Yes normal appearance of the vagina, Yes normal appearance of the cervix, Yes normal bimanual exam, Yes No adnexal tenderness and Yes no masses BLADDER/KIDNEY EXAM: Yes no CVA tenderness BIMANUAL EXAM - VAGINA & UTERUS: Yes normal bimanual exam Back/Pelvis: COMMON NORMALS: no CVA tenderness, thoracic and lumbar spine normal to inspection, no thoracic nor lumbar tenderness and thoraco-lumbar ROM normal THORACIC SPINE/UPPER BACK: Yes normal to inspection LUMBAR SPINE/LOWER BACK: Yes normal to inspection Extremity: COMMON NORMALS: capillary refill normal GENERAL: Yes normal exam except as noted RIGHT UPPER EXTREMITY: Yes wrist (nvi distally) Right wrist: Yes inspection, Yes palpation and Yes neurovascular exam Neuro: COMMON NORMALS: patient oriented x3, CN's II-XII intact bilaterally, moves all extremities, no focal motor deficits, no sensory deficits noted, deep tendon reflexes 2+ bilaterally and gait normal SENSORIUM/ORIENTATION: Yes alert, Yes oriented to person, Yes oriented to place and Yes oriented to time MENINGEAL SIGNS: Yes no meningeal signs CRANIAL NERVES: Yes CN normal except as noted SPEECH: speech normal GAIT: Yes Normal gait present SENSORY EXAM: Yes extremities MOTOR EXAM: 5/5 motor strength present throughout Psych: COMMON NORMALS: mental status grossly normal, Normal thought process present, cooperative, normal affect, speech normal, activity/motor behavior normal, denies hallucinations, denies homicidal ideation and denies suicidal ideation APPEARANCE: Yes grossly normal and Yes well kempt ATTITUDE: Yes calm ACTIVITY/MOTOR BEHAVIOR: Yes appropriate eye contact SPEECH: Yes normal speech THOUGHT PROCESS: Normal thought process present THOUGHT CONTENT: Yes Normal thought content present ATTENTION/CONCENTRATION: Yes attention grossly intact MEMORY/COGNITION: Yes memory grossly intact INSIGHT: Good insight present (Psych) JUDGEMENT: Good judgement present (Psych) Skin: COMMON NORMALS: no rashes or lesions noted, no wounds, turgor normal, no jaundice, no petechiae and no mottling GENERAL SKIN EXAM: no rashes or lesions noted and turgor normal Course Vital Signs: Vital signs: Vital Signs Temperature 97.4 F L 11/11/20 11:17 Pulse Rate 78 11/11/20 11:17 Respiratory Rate 22 H 11/11/20 11:17 Blood Pressure 135/79 11/11/20 11:17 Pulse Oximetry 94 11/11/20 11:17 MDM - Extremity (Nontraumatic) MDM Narrative: Medical decision making narrative: Pt is well appearing non toxic and in no acute distress. Pt does not want CT head/neck as she states she did not hit her head. Pt states she didnt even hit very hard just landed on her wrist funny. xray reveals a displaced ulnar.radial fracture. I discussed this case with Dr. Olivo and will splint and send to ortho. Pts pain was treated her and will send hr home on a short course of pain meds. Pt was NVI distally pre and post splint applicaion Discharge Plan Discharge Patient Disposition: Home Clinical Impression: Fracture of wrist Qualifiers: Encounter type: initial encounter Fracture type: closed Laterality: right Qualified Code(s): S62.101A - Fracture of unspecified carpal bone, right wrist, initial encounter for closed fracture Condition: Stable Prescriptions: New hydrocodone-acetaminophen 5-325 mg tablet 1 tab PO Q8H Qty: 14 RF: 0 No Action acetaminophen [Tylenol] 325 mg Tablet 325 mg PO Q4-5H PRN (Reason: Pain) RF: 0 Hold Instructions: Resume on 07/31/20. Do not take additional acetaminophen with the pain medication that was prescribed today. diltiazem HCl 120 mg Capsule,Extended Release 12 Hr 120 mg PO BID RF: 0 Spiriva Respimat 1.25 mcg/actuation Mist 2 puff INHALATION DAILY RF: 0 fluticasone propion-salmeterol [Wixela Inhub] 250-50 mcg/dose blister with device 1 inh INHALATION BID RF: 0 hydrocodone-acetaminophen 5-325 mg tablet 1 - 2 tab PO Q5H PRN (Reason: pain) Qty: 20 RF: 0 Discharge Orders: Discharge ED (Routine); Ordered 11/11/20 Ordered By: Love Kaur Referrals: Nell Fang [Primary Care Provider] - Discharge Diet: Advance as tolerated Discharge Activity: Limit activity as instructed Patient Instructions: Wrist Fracture in Adults (ED), Opioid Safety Activity Restrictions/Additional Instructions: Workgroup Leader will call you with Ortho follow up appointment Please return to ER You have increased pain or swelling in your wrist area that does not go away. Your cast or splint gets damaged or breaks. Your cast feels tighter, and you have more swelling in your fingers. Your fingers on the injured wrist turn blue or white, or they are cold or numb. Your arm feels warm, tender, and painful. It may look swollen and red. You suddenly feel lightheaded and short of breath. You have chest pain Please no driving or operating heavy machinery while taking pain meds Please leave cast in place and do not get wet Coding Level of Care Code ED B[employer] W[employer] Packer for Yoel Fwd Exam Comprehensive
[2020-11-11 15:06] VITALS: BP 139/71; PULSE 78; RESP 16; O2SAT 96
--- NOTE | 2020-11-11 15:07 | DCPLANNER ---
manager crisis had message to schedule a follow up appointment for patient with ortho for a wrist fracture. manager crisis called the ortho clinic spoke with Karyn, gave clinic patients information. manager crisis was told that patients information would be printed and reviewed. Clinic will call patient with appointment information.
--- NOTE | 2020-11-11 15:53 | XRR_ITS ---
PROCEDURE INFORMATION: Exam: XR Right Wrist Exam date and time: 11/11/2020 3:56 PM Age: 80 years old Clinical indication: Injury or trauma; Fall; Blunt trauma (contusions or hematomas); Wrist; Right; Injury date: Today; Injury details: Post TECHNIQUE: Imaging protocol: XR Right wrist. Views: 3 or more views. COMPARISON: OT C-arm [place] for CVA [id number] 07/25/2020 10:44 AM FINDINGS: Bones/joints: There has been interval splinting of the right wrist fracture. Fractures of the distal right radius and ulna are again identified without significant change in alignment. Soft tissues: There is an overlying splint. XR/XR wrist RT min 3V* [id number] IMPRESSION: There has been interval splinting of the right wrist fracture. Fractures of the distal right radius and ulna are again identified without significant change in alignment.
[2020-11-11 16:16] LABS: SARS Covid-2 Antigen Negative (Negative)
--- NOTE | 2020-11-15 14:55 | DCPLANNER ---
Patient had a follow up appointment scheduled for 11.13.[address] Reyes at [facility] - patient did attend appointment.
== END 2020-11-11 17:12 | disposition home or self-care (01) ==
PROVIDERS: Emergency Provider Registered Nurse; PCP Family Medicine
DX: F17.210 Nicotine dependence, cigarettes, uncomplicated (principal); Z20.822 Contact with and (suspected) exposure to COVID-19
CPT/HCPCS: 29125; 73090; 73110; 87426; 99283

== ENCOUNTER 2020-11-15 09:16 | Day surgery (SDC) | payer MEDICARE, SELFPAY ==
[2020-11-14 14:16] VITALS: BMI 29.2
[2020-11-15] VITALS (7 sets, daily range): BP systolic 118–152; BP diastolic 54–104; PULSE 82–100; RESP 16–22; TEMP 36.2–36.8; O2SAT 93–96
--- NOTE | 2020-11-15 | SCC_ITS ---
Procedure Done: Open reduction internal fixation right unstable distal radius fracture, comminuted 81.5 seconds of fluoroscopic guidance, for a cumulative dose of 1.39 mGy, was provided to Dr. Reyes by the radiology department. C-arm images of the RIGHT wrist were saved for the patient's permanent record. [email or web address]
[2020-11-15] MEDS: sodium chloride 0.9% 1,000 ML 30 ML IV (10:20)
[2020-11-15] MEDS: acetaminophen 1,000 MG/100 ML PIGGYBACK 400 MG IV (10:20)
[2020-11-15 10:26] LABS: Basophils % 0.3 %; Eosinophils # 0.1 10^3/uL (0.0-0.8); Eosinophils % 0.7 %; Hematocrit 37.7 % (37.0-47.0); Hemoglobin 11.9 g/dL (11.5-15.3); Lymphocytes # 1.3 10^3/uL (0.8-4.8); Lymphocytes % 16.5 %; Mean Corpuscular HGB Conc 31.6 g/dL (30.0-36.0); Mean Corpuscular Hemoglobin 30.1 pg (28.0-34.0); Mean Corpuscular Volume 95.4 fL (81-99); Mean Platelet Volume 10.5 fL (7.4-10.4); Monocytes % 12.6 %; Neutrophils # 5.32 10^3/uL (1.8-7.7); Neutrophils % 69.6 %; Nucleated Red Blood Cells % 0 %; Platelet Count 262 10^3/cmm (130-400); Red Blood Count 3.95 10^6/uL (4.1-5.3); White Blood Count 7.6 10^3/uL (4.0-10.0)
[2020-11-15 10:59] LABS: Add Urine Microscopic? YES; Bilirubin Urine Neg (Negative); Blood Urine Neg (Negative); Glucose Urine UA Norm (Normal); Ketones Urine Negative (Negative); Leukocyte Esterase Urine 1+ (Negative); Nitrate Urine Negative (Negative); Protein Urine Neg (Negative); Specific Gravity, Urine 1.015 (1.005-1.030); Urine Appearance Clear (CLEAR); Urine Color Yellow (Yellow); Urobilinogen Urine Norm (Negative); pH Urine 6.5 (5-7)
[2020-11-15 11:02] LABS: Albumin Level 3.6 g/dL (3.5-5.2); Sodium 137 mmol/L (136-145)
[2020-11-15 11:06] LABS: Add Urine Culture? No; Bacteria Urine TRACE /hpf
--- NOTE | 2020-11-15 11:39 | P.ANESASSM_ITS ---
Pre-Anesthetic Assessment Pre-Anesthetic Assessment: Height/Weight: Height 1.7 m Weight 84.822 kg Temp Resp 97.7 F 20 H 11/15/20 09:48 11/15/20 09:48 Preop Diagnosis: Distal radius and ulnar fractures, displaced Proposed Procedure: Operation Date: 11/15/20 11:30 Proposed Procedures p OPEN REDUCTION INTERNAL FIXATION RIGHT DISTAL RADIUS FRACTURE 86501 s52.509A(Right) - Hilary Reyes MD Was Beta Mina taken within 24 hours: N/A Was Clonidine taken within 24 hours: N/A Last intake: Intake Last Liquid Date 11/14/20 Last Liquid Time 21:00 Last Solid Date 11/14/20 Last Solid Time 21:00 Social: Social History: Tobacco and No alcohol Exam: Pre-Anes Outpt Exam: alert, oriented x 3 and regular rate & rhythm Airway: Submandibular: WNL Cervical ROM: WNL MP: 2 Dentition: False Pulmonary: Pulmonary: COPD Comments: Home O2 2L CV/HEM: CV/HEM: HTN Anesthetic Plan: ASA status: 3 Anesthesia: MAC and Regional (specify below) (Interscalene nerve blk) Risk of > 500 ml blood loss (7ml/kg in children): No Meds/Allergies Current Medications: Current Medications Generic Name Dose Route Start Last Admin Trade Name Freq PRN Reason Stop Dose Admin Sodium Chloride 1,000 mls @ 30 ml s/hr 11/15/20 09:45 11/15/20 10:20 Sodium Chloride 0.9% IV 11/16/20 09:44 30 mls/hr .Q24H BABITA Administration PFSH Anesthesia PFSH: Medical History (Updated 11/13/20 @ 12:26 by Hilary Reyes MD) Anxiety Breast cancer COPD (chronic obstructive pulmonary disease) Depression Emphysema of lung Hx of colon cancer, stage I Port-A-Cath in place Skin cancer Surgical History (Updated 11/13/20 @ 12:26 by Hilary Reyes MD) Hx of cataract surgery Hx of cholecystectomy Hx of right mastectomy Hx of tubal ligation Social History (Updated 11/13/20 @ 12:27 by Hilary Reyes MD) Smoking and tobacco status: current every day smoker cigarettes Packs smoked per day: 1 Years cigarettes smoked: 67 Data Anesthesia CBC & Chem 7: 11/15/20 10:15 11/15/20 10:15 Other Labs: Laboratory Results - last 48 hr 11/15/20 11/15/20 11/15/20 10:15 10:15 10:15 WBC 7.6 RBC 3.95 L Hgb 11.9 Hct 37.7 MCV 95.4 MCH 30.1 MCHC 31.6 RDW 14.0 Plt Count 262 MPV 10.5 H Neut % (Auto) 69.6 Lymph % (Auto) 16.5 [place] % (Auto) 12.6 Eos % (Auto) 0.7 Baso % (Auto) 0.3 Neut # (Auto) 5.32 Lymph # (Auto) 1.3 [place] # (Auto) 1.0 H Eos # (Auto) 0.1 Baso # (Auto) 0.0 Nucleated RBC % (auto) 0 Nucleated RBCs # 0.0 Sodium 137 Potassium 4.3 Chloride 101 Albumin 3.6 Urine Color Yellow Urine Appearance Clear Urine pH 6.5 Ur Specific [place] 1.015 Urine Protein Neg Urine Glucose (UA) Norm Urine Ketones Negative Urine Blood Neg Urine Nitrate Negative Urine Bilirubin Neg Urine Urobilinogen Norm Ur Leukocyte Esterase 1+ H Urine RBC None Urine WBC 5-10 H Ur Squamous Epith Cells 5-10 H Amorphous Sediment Not Reportable Urine Bacteria Trace Cardiac Studies: No Data to Display
[2020-11-15 11:50] LABS: Alanine Aminotransferase 10 U/L (0-33); Alkaline Phosphatase 108 IU/L (35-105); Anion Gap 13.2 (5-19); Aspartate Amino Transferase 15 U/L (0-32); Blood Urea Nitrogen 10 mg/dL (8-23); Carbon Dioxide 28 mmol/L (22-29); Creatinine Clr Calc Pharmacy 63.8122; Glucose 99 mg/dL (65-115); Osmolality Calculated 283 mOsm/kg (285-295); Total Bilirubin 0.4 mg/dL (0.15-1.2); Total Protein 6.6 g/dL (6.6-8.7)
[2020-11-15 11:51] LABS: Chloride 100 mmol/L (98-107); Potassium 4.2 mmol/L (3.5-5.1)
[2020-11-15] MEDS: midazolam 1 mg/mL INJ 5 ML 5 MG IVP (12:04)
--- NOTE | 2020-11-15 12:56 | P.HPUD_ITS ---
Surgery/Procedure H&P Update DATE OF PROCEDURE: November 15, 2020 DATE H&P PERFORMED: 11/13/20 H&P UPDATE INFORMATION: I have reviewed H&P completed within last 30 days, I have examined patient prior to procedure, No changes to prior documentation and H&P is in [facility]MR on date indicated PREOP DIAGNOSIS: Distal radius and ulnar fractures, displaced PLANNED PROCEDURE: Operation Date: 11/15/20 11:30 Proposed Procedures p OPEN REDUCTION INTERNAL FIXATION RIGHT DISTAL RADIUS FRACTURE 13287 s52.509A(Right) - Hilary Reyes MD Related Problem List Diagnoses (1) Closed fracture of distal ends of right radius and ulna: Qualifiers: Encounter type: initial encounter Qualified Code(s): S52.501A - Unspecified fracture of the lower end of right radius, initial encounter for closed fracture; S52.601A - Unspecified fracture of lower end of right ulna, initial encounter for closed fracture
--- NOTE | 2020-11-15 13:10 | ANES.PROC ---
Anesthesia Procedures Procedure/Date: 11/15/20 Nerve Block ^: Nerve Block 1: Main Anesthesia: other (Interscalene blk) Time Out Performed: Yes Consent: requested by attending/covering physician, from patient, risks and benefits reviewed and patient agrees to proceed Nerve block location: interscalene (right) Anesthesia monitors applied: pulse oximetry, EKG, BP cuff and oxygen Nerve block position: semi sitting Anesthetic Used: ropivicaine 0.5% Amount of anesthesia used (mL): 20 Ultrasound used to: recognize landmarks Nerve Stimulator Used?: No Interscalene/Femoral BLK: 2 stimuplex 22 g needle used for position and inplane approach, visualize local anesthetic spread and no vascular puncture identified Injection: neg aspiration of heme Patient Tolerated Procedure: well Complications: none
[2020-11-15] MEDS: ceFAZolin 1,000 mg SDV 1000 MG IRRIGATION (13:48)
--- NOTE | 2020-11-15 15:06 | XR_ITS ---
WS: [id number] Right wrist, C-arm fluoroscopy, 11/15/2020 Clinical Data: OR PICS Comparison: Right wrist, 11/11/2020. Findings: There is a ventral plate with orthopedic screws reducing the distal right radial fracture. The distal right ulnar fracture is visible. XR/XR wrist RT 2V 52375 Impression: Internal fixation of distal right radial fracture.
--- NOTE | 2020-11-15 15:25 | PM.OP ---
Operative Report Date of procedure: November 15, 2020 Pre-op Diagnosis: Distal radius and ulnar fractures, comminuted and displaced Post-op diagnosis: same Post-op Findings: Comminuted displaced very unstable right distal radius fracture Procedure Done: Open reduction internal fixation right unstable distal radius fracture, comminuted Implants: [place] extra short narrow 3-hole volar right distal radius plate Specimens removed/disposition: None Pathology: none sent Surgeon: Hilary Reyes Slope Hoist Operator: [facility] operating room technicians letter Anesthesia: MAC (With axillary and interscalene blocks) Estimated blood loss (mL): 5 Tourniquet time (min): 72 Tourniquet time: At 250 mmHg IV fluids (mL): 900 Urine output (mL): 0 Urine output: No [place] Complications: None Findings: Comminuted impacted osteopenic distal radius and ulna fracture, very unstable Condition: stable (On oxygen as is routine for the patient) Disposition: PACU (Then transferred to same-day surgery for discharge to home) Brief History: This 80-year-old woman who presented after a fall which resulted in a comminuted significantly displaced shortened right distal radius and distal ulna fracture. Discussion was undertaken in the office regarding the fact that this was an extremely unstable fracture. Attempted reduction was accomplished in the emergency department but the fracture was unable to be maintained in a reduced position secondary to the anatomy of the fracture. The patient was seen in the clinic earlier this week and scheduled for the above procedure. She has chronic significant COPD and is chronically on oxygen as well. For this reason, discussion was undertaken regarding local and regional anesthetic versus a general anesthetic. The patient is in agreement with the plan. Questions are answered and consents are signed. Procedure: Patient was seen in the preoperative holding area and right arm was marked. Patient was brought to the operating theater and placed on the operating room table. After undergoing adequate anesthesia in the form of interscalene and axillary blocks, the patient's right upper extremity was prepped and draped in usual fashion utilizing DuraPrep. The arm was draped free. Fluoroscopy was used throughout the surgical procedure. A tourniquet was placed high on the left upper extremity. The arm was exsanguinated. And the tourniquet was elevated to 250 mmHg and total tourniquet time was 72 minutes. A surgical pause was performed. At the time of the surgical pause we identified the site and side of surgery as well as the patient's identity and availability of equipment. We also confirmed appropriate administration of IV antibiotics, Ancef 2 g. Following the above, an incision was made centering over the patient's distal radius fracture with visualization accomplished on fluoroscopy. The incision was continued proximally and distally as necessarily to allow access to the fracture. Soft tissues were damaged at the time of the fracture, and blunt dissection was used to dissect down onto the radius. Under fluoroscopic guidance, we were able to reduce the fracture anatomically. The fracture was noted to reduce nicely and nearly anatomically. The plate had been chosen preoperatively with visualization of the fracture and the plate. The plate chosen was a 3 hole (extra short) narrow volar right distal radius plate. We used a combination of locking and one non-locking screw. Fracture reduction and screw lengths were evaluated utilizing fluoroscopy. The fracture essentially was held anatomically with this plate. After irrigation of the wound, attention was directed to closure. Closure was accomplished with 3-0 Monocryl in the subcutaneous tissues. 4-0 Monocryl was used to close the skin. Due to the patient's very thin skin , decision was made to then place Dermabond with out Steri-Strips. This was followed by Telfa, fluffed fluffs, sterile soft roll, and a volar splint. This was wrapped in place with an Moe wrap. The tourniquet was released after 72 minutes at 250 mmHg. The patient will be discharged home to follow-up with me in the office. The procedure was well tolerated without complication. There were no specimens. Associated Problem List Diagnoses (1) Closed fracture of distal ends of right radius and ulna: Qualifiers: Encounter type: initial encounter Qualified Code(s): S52.501A - Unspecified fracture of the lower end of right radius, initial encounter for closed fracture; S52.601A - Unspecified fracture of lower end of right ulna, initial encounter for closed fracture
--- NOTE | 2020-11-15 15:29 | SUR.PHASEI ---
1524 pt to pacu very awake, resp slightly labored on 4lnc. pt is on 3lnc at home at all times and now sitting up in bed with assist, bed in chair position, pillow to arm, pt denies pain , distal rt fingers pink warm with cap refill of less than 3 seconds sling to rt arm. pt unable to move fingers but pt had a interscalene block prior to surgery.
--- NOTE | 2020-11-15 15:31 | SUR.PHASEI ---
1524 pt handoff at bedside.
--- NOTE | 2020-11-15 15:54 | ANE.PACU2 ---
Inpatient post-anesthesia follow up: Airway intact: Yes Vital signs: Temperature 97.2 F Pulse Rate 82 Respiratory Rate 16 Blood Pressure 128/56 Pulse Oximetry 94 Oxygen Delivery Me thod Nasal Cannula Oxygen Flow Rate 4 Fraction of Inspir ed Oxygen Hydration adequate: Yes Nausea and vomiting: No Pain level: 2 Mental status: Baseline
[2020-11-15] MEDS: ondansetron 2 mg/ML SDV 2 mL 4 MG IVP (16:02)
== END 2020-11-15 17:20 | disposition home or self-care (01) ==
PROVIDERS: PCP Family Medicine; Visit Provider Specialist
PROC: (CPT 25607; principal; 2020-11-15 11:30)
DX: S52.501A Unspecified fracture of the lower end of right radius, initial encounter for closed fracture (principal); S52.601A Unspecified fracture of lower end of right ulna, initial encounter for closed fracture; X58.XXXA Exposure to other specified factors, initial encounter; Z99.81 Dependence on supplemental oxygen; I10 Essential (primary) hypertension; F41.9 Anxiety disorder, unspecified; Z85.3 Personal history of malignant neoplasm of breast; J43.9 Emphysema, unspecified; Z85.038 Personal history of other malignant neoplasm of large intestine; Z85.828 Personal history of other malignant neoplasm of skin; F17.210 Nicotine dependence, cigarettes, uncomplicated
CPT/HCPCS: 25607; 64415; 73100; 76000; 76942; 80053; 81001; 85025; 96374; C1713; J0690; J2250; J2405; J2704; J2795; J3010; J7030

== ENCOUNTER → 2020-12-02 09:07 | Outpatient (BNVA) | payer MEDICARE, SELFPAY | PROVIDERS: PCP Family Medicine; Visit Provider Specialist | DX: S52.501A Unspecified fracture of the lower end of right radius, initial encounter for closed fracture (principal); S52.601A Unspecified fracture of lower end of right ulna, initial encounter for closed fracture; X58.XXXA Exposure to other specified factors, initial encounter; Z46.89 Encounter for fitting and adjustment of other specified devices; S52.501D Unspecified fracture of the lower end of right radius, subsequent encounter for closed fracture with routine healing; S52.601D Unspecified fracture of lower end of right ulna, subsequent encounter for closed fracture with routine healing; X58.XXXD Exposure to other specified factors, subsequent encounter | CPT/HCPCS: 73110; 97760; L3982 ==

== ENCOUNTER 2020-12-02 13:51 | Outpatient (CLI) | payer MEDICARE, SELFPAY | END 2020-12-02 13:52 | disposition home or self-care (01) | LOC: SPT 13:52 | PROVIDERS: PCP Family Medicine; Visit Provider Specialist | DX: Z46.89 Encounter for fitting and adjustment of other specified devices (principal); S52.501D Unspecified fracture of the lower end of right radius, subsequent encounter for closed fracture with routine healing; S52.601D Unspecified fracture of lower end of right ulna, subsequent encounter for closed fracture with routine healing; X58.XXXD Exposure to other specified factors, subsequent encounter | CPT/HCPCS: 97760; L3982 ==

== ENCOUNTER → 2020-12-23 08:13 | Outpatient (BNVA) | payer MEDICARE, SELFPAY | PROVIDERS: PCP Family Medicine; Visit Provider Specialist | DX: S52.501A Unspecified fracture of the lower end of right radius, initial encounter for closed fracture (principal); S52.601A Unspecified fracture of lower end of right ulna, initial encounter for closed fracture; Z98.890 Other specified postprocedural states; X58.XXXA Exposure to other specified factors, initial encounter | CPT/HCPCS: 73110 ==

== ENCOUNTER → 2021-01-13 08:06 | Outpatient (BNVA) | payer MEDICARE, SELFPAY | PROVIDERS: PCP Family Medicine; Visit Provider Specialist | DX: S52.501D Unspecified fracture of the lower end of right radius, subsequent encounter for closed fracture with routine healing (principal); S52.601D Unspecified fracture of lower end of right ulna, subsequent encounter for closed fracture with routine healing; W19.XXXD Unspecified fall, subsequent encounter; Z98.890 Other specified postprocedural states | CPT/HCPCS: 73110 ==

== ENCOUNTER → 2021-02-24 08:06 | Outpatient (BNVA) | payer MEDICARE, SELFPAY | PROVIDERS: PCP Family Medicine; Visit Provider Specialist | DX: S52.501D Unspecified fracture of the lower end of right radius, subsequent encounter for closed fracture with routine healing (principal); S52.601D Unspecified fracture of lower end of right ulna, subsequent encounter for closed fracture with routine healing; X58.XXXD Exposure to other specified factors, subsequent encounter; Z98.890 Other specified postprocedural states | CPT/HCPCS: 73110 ==

== ENCOUNTER 2021-07-08 11:05 | Emergency (ER) | payer MEDICARE, SELFPAY ==
[2021-07-08 11:17] VITALS: BP 130/69; PULSE 95; RESP 20; TEMP 36.7; O2SAT 92; BMI 28.8
--- NOTE | 2021-07-08 11:32 | ECG_ITS ---
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 Measurements Intervals [place] Rate: 80 P: -83 NC: 198 QRS: -9 QRSD: 117 T: 33 QT: 353 QTc: 407 Interpretive Statements ECTOPIC ATRIAL RHYTHM WITH OCCASIONAL VENTRICULAR PREMATURE COMPLEXES WITH OCCASIONAL SUPRAVENTRICULAR PREMATURE COMPLEXES INCOMPLETE RIGHT BUNDLE BRANCH BLOCK [90+ ms QRS DURATION, TERMINAL R IN V1/V2, 40+ ms S IN I/aVL/V4/V5/V6] No previous ECG available for comparison Electronically Signed On 07-08-2021 17:30:02 COMPENSATION AND BENEFITS ADVISOR by Adolfo Clemente M.D. [email or web address].[employer]/store/[id number]
--- NOTE | 2021-07-08 11:35 | W.ED.CHESTPA ---
HPI - Chest Pain General: Chief Complaint: Chest Pain Stated Complaint: High B/P, heart palpitations Time Seen by Provider: 07/08/21 11:31 Source: patient Mode of arrival: ambulatory Limitations: no limitations History of Present Illness: 80-year-old female presents to the emergency room with complaint of chest discomfort radiating into the right ear. Began last night around 3 AM woke her up. She takes Cardizem regularly the pain comes and goes she gets it about once a month she states sometimes it will make her little short of breath usually does not radiate anywhere will resolve spontaneously often begins at rest she is not previously been evaluated for it. She has no known history of coronary artery disease no previous episode she is not diabetic. She has previously had colon cancer and breast cancer. She is describes a vague discomfort but different than what woke her up this morning which she described as actual pain. MD complaint: chest pain Onset (ago): month(s) Timing of current episode: episodic Prior episodes: Yes Onset: during rest Pain location: left chest and right chest Pain radiation: none Quality: tightness and aching Relieving factors: nothing Exacerbating factors: nothing Associated symptoms: Reports dyspnea; Deny abdominal pain, diaphoresis, fever(s), leg edema, nausea, palpitations, sense of impending doom, syncope or vomiting Treatment prior to arrival: none Review of Systems Const: Denies: fever(s) or diaphoresis ENMT: Denies: throat pain, ear or mastoid pain, nasal discharge or nasal congestion Card: Denies: palpitations or syncope Resp: Reports: dyspnea GI: Denies: abdominal pain, nausea or vomiting : Denies: flank pain, difficulty voiding, dysuria, urinary frequency or urinary urgency Skin/Breast: Denies: rash or pruritus PFS ED PFSH: Medical History Anxiety Breast cancer COPD (chronic obstructive pulmonary disease) Depression Emphysema of lung Hx of colon cancer, stage I Port-A-Cath in place Skin cancer Surgical History Hx of cataract surgery Hx of cholecystectomy Hx of right mastectomy Hx of tubal ligation Physical Exam Const: COMMON NORMALS: no acute distress and patient oriented x3 GENERAL APPEARANCE: cooperative, comfortable and well kempt NUTRITIONAL APPEARANCE: obese ORIENTATION/CONSCIOUSNESS: Yes awake, Yes oriented to person, Yes oriented to place and Yes oriented to time HENMT: COMMON NORMALS: normocephalic, atraumatic, hearing grossly normal bilaterally, EAC's normal, TM's normal bilaterally and Normal external nose present HEAD & SCALP: normocephalic and atraumatic NOSE: Normal external nose present EXTERNAL AUDITORY CANAL: EAC's normal TYMPANIC MEMBRANE: TM's normal bilaterally MOUTH: Normal oral and palatal mucosa present, lip normal and tongue normal THROAT: posterior oropharynx normal and tonsils normal Eye: COMMON NORMALS: Equal, round and reactive pupils present, EOMs intact bilaterally, conjunctivae normal and no scleral icterus CONJUNCTIVA: Yes conjunctivae normal PUPIL: Yes Equal, round and reactive pupils present Neck/C-Spine: COMMON NORMALS: no meningeal signs, no JVD and Thyroid normal THYROID: Thyroid normal and asymmetrical Lymph: LYMPHATIC: no lymphadenopathy noted Resp: COMMON NORMALS: normal respiratory effort, No retractions, No use of accessory muscles and clear to auscultation bilaterally AUSCULTATION: clear to auscultation bilaterally Cardio: COMMON NORMALS: no JVD, regular rate, regular rhythm and No murmurs present (Cardio) RATE: regular rate RHYTHM: regular rhythm HEART SOUNDS: no murmurs GI: COMMON NORMALS: Soft to palpation and No hepatosplenomegaly present AUSCULTATION: Yes normoactive bowel sounds PALPATION: Yes Soft to palpation, No Tenderness to palpation present (GI), No Guarding due to palpation present (GI) and Yes No hepatosplenomegaly present : COMMON NORMALS: Yes no CVA tenderness BLADDER/KIDNEY EXAM: Yes no CVA tenderness Back/Pelvis: COMMON NORMALS: no CVA tenderness LUMBAR SPINE/LOWER BACK: Yes normal to inspection Extremity: COMMON NORMALS: normal to inspection, capillary refill normal, no clubbing, cyanosis or edema, no calf tenderness and no pedal edema Neuro: COMMON NORMALS: patient oriented x3 SENSORIUM/ORIENTATION: Yes oriented to person, Yes oriented to place and Yes oriented to time MENINGEAL SIGNS: Yes no meningeal signs Psych: APPEARANCE: Yes well kempt Skin: COMMON NORMALS: no rashes or lesions noted GENERAL SKIN EXAM: no rashes or lesions noted Course Vital Signs: Vital signs: Vital Signs Temperature 98.1 F 07/08/21 11:17 Pulse Rate 95 07/08/21 11:17 Respiratory Rate 19 H 07/08/21 14:47 Blood Pressure 120/89 07/08/21 14:47 Pulse Oximetry 92 07/08/21 14:47 MDM - Chest Pain Medical Decision Making EKGs cardiac enzymes reviewed. Patient does not have any acute EKG changes does have some mild hypokalemia which she was treated for here. She was mildly tachycardic at times but that has resolved. She is usually on 4 L of oxygen by nasal cannula and her sats remain at her normal baseline. We will set her up for a 48-hour Holter monitor and a Lexiscan sestamibi stress test. States she does not want to do the stress test I am not sure that that will get done. Will start on isosorbide mononitrate continue her other medications follow-up with your primary care after 48-hour Holter and the stress testing if it is completed. Patient vies to return if she has any further problems. Medical Records I reviewed the patient's medical records. Lab Data I reviewed the patient's lab results. : 07/08/21 11:51 07/08/21 11:51 Laboratory Results WBC 5.3 10^3/uL (4.0-10.0) 07/08/21 11:51 RBC 3.82 10^6/uL (4.1-5.3) L 07/08/21 11:51 Hgb 11.4 g/dL (11.5-15.3) L 07/08/21 11:51 Hct 35.3 % (37.0-47.0) L 07/08/21 11:51 MCV 92.4 fl (81-99) 07/08/21 11:51 MCH 29.8 pg (28.0-34.0) 07/08/21 11:51 MCHC 32.3 g/dL (30.0-36.0) 07/08/21 11:51 RDW 13.4 % (12.1-15.1) 07/08/21 11:51 Plt Count 261 10^3/cmm (130-400) 07/08/21 11:51 MPV 10.6 fL (7.4-10.4) H 07/08/21 11:51 Neut % (Auto) 57.3 % 07/08/21 11:51 Lymph % (Auto) 27.7 % 07/08/21 11:51 [place] % (Auto) 13.1 % 07/08/21 11:51 Eos % (Auto) 1.5 % 07/08/21 11:51 Baso % (Auto) 0.2 % 07/08/21 11:51 Neut # (Auto) 3.06 10^3/uL (1.8-7.7) 07/08/21 11:51 Lymph # (Auto) 1.5 10^3/uL (0.8-4.8) 07/08/21 11:51 [place] # (Auto) 0.7 10^3/uL (0.2-0.9) 07/08/21 11:51 Eos # (Auto) 0.1 10^3/uL (0.0-0.8) 07/08/21 11:51 Baso # (Auto) 0.0 10^3/uL (0.0-0.1) 07/08/21 11:51 Nucleated RBC % (auto) 0 % 07/08/21 11:51 Nucleated RBCs # 0.0 /100WBC 07/08/21 11:51 Sodium 139 mmol/L (136-145) 07/08/21 11:51 Potassium 2.9 mmol/L (3.5-5.1) L 07/08/21 11:51 Chloride 99 mmol/L (98-107) 07/08/21 11:51 Carbon Dioxide 30 mmol/L (22-29) H 07/08/21 11:51 Anion Gap 12.9 (5-19) 07/08/21 11:51 BUN 6 mg/dL (8-23) L 07/08/21 11:51 Creatinine 0.6 mg/dL (0.5-0.9) 07/08/21 11:51 GFR Calculation Not Reportable 07/08/21 11:51 Glucose 100 mg/dL (65-115) 07/08/21 11:51 Calculated Osmolality 286 mOsm/kg (285-295) 07/08/21 11:51 Calcium 11.9 mg/dL (8.5-10.5) H 07/08/21 11:51 Total Bilirubin 0.4 mg/dL (0.15-1.2) 07/08/21 11:51 AST 10 U/L (0-32) 07/08/21 11:51 ALT < 5 U/L (0-33) 07/08/21 11:51 Alkaline Phosphatase 155 IU/L (35-105) H 07/08/21 11:51 Troponin T Baseline 29 ng/L (0-10) H 07/08/21 11:51 Troponin T 120 Minute 26.96 ng/L (0-10) H 07/08/21 13:34 Delta Troponin T -2.04 ABS# (0-10) L 07/08/21 13:34 Total Protein 6.9 g/dL (6.6-8.7) 07/08/21 11:51 Albumin 3.7 g/dL (3.5-5.2) 07/08/21 11:51 Globulin 3.2 g/dL (1.3-4.6) 07/08/21 11:51 Discharge Plan Discharge Patient Disposition: Home Clinical Impression: Atypical chest pain, COPD (chronic obstructive pulmonary disease), Tachycardia Condition: Stable Prescriptions: New isosorbide mononitrate 30 mg tablet extended release 24 hr 30 mg PO DAILY Qty: 30 0RF aspirin 81 mg tablet,delayed release (DR/EC) 81 mg PO DAILY Qty: 30 0RF No Action sodium chloride 0.9 % (flush) Syringe 1 ml IV ONCE Qty: 1 0RF heparin, porcine (PF) 100 unit/mL (1 mL) solution 100 unit IV ONCE Qty: 1 0RF sodium chloride 0.9 % (flush) Syringe 1 ml IV ONCE Qty: 1 0RF heparin, porcine (PF) 100 unit/mL (1 mL) solution 100 unit IV ONCE Qty: 1 0RF (DME) Fast Form Cock Up Splint See Rx Instructions .ROUTE .MEDSUPPLY Qty: 1 0RF Rx Instructions: As directed alprazolam [Xanax] 0.25 mg tablet 0.25 mg PO DAILY PRN0RF hydrocodone-acetaminophen 5-325 mg tablet 1 tab PO Q8H 10 Days Qty: 30 0RF acetaminophen [Tylenol] 325 mg Tablet 325 mg PO Q4-5H PRN (Reason: Pain) 0RF Hold Instructions: Resume on 07/31/20. Do not take additional acetaminophen with the pain medication that was prescribed today. diltiazem HCl 120 mg Capsule,Extended Release 12 Hr 120 mg PO BID 0RF Spiriva Respimat 1.25 mcg/actuation Mist 2 puff INHALATION DAILY 0RF fluticasone propion-salmeterol [Wixela Inhub] 250-50 mcg/dose blister with device 1 inh INHALATION BID 0RF Discharge Orders: Discharge ED (Routine); Ordered 07/08/21 Ordered By: Gagandeep Olivo Referrals: Nell Fang [Primary Care Provider] - Discharge Diet: Usual diet Discharge Activity: Limit activity as instructed Activity Restrictions/Additional Instructions: Avoid strenuous activity. Case management will call to make arrangements for you to have a 48-hour Holter monitor and a Lexiscan sestamibi stress test Coding Level of Care Code ED Hydropulper for Yoel Fwd Exam Comprehensive
[2021-07-08 12:02] LABS: Basophils % 0.2 %; Eosinophils # 0.1 10^3/uL (0.0-0.8); Eosinophils % 1.5 %; Hematocrit 35.3 % (37.0-47.0); Hemoglobin 11.4 g/dL (11.5-15.3); Lymphocytes # 1.5 10^3/uL (0.8-4.8); Lymphocytes % 27.7 %; Mean Corpuscular HGB Conc 32.3 g/dL (30.0-36.0); Mean Corpuscular Hemoglobin 29.8 pg (28.0-34.0); Mean Corpuscular Volume 92.4 fl (81-99); Mean Platelet Volume 10.6 fL (7.4-10.4); Monocytes # 0.7 10^3/uL (0.2-0.9); Monocytes % 13.1 %; Neutrophils # 3.06 10^3/uL (1.8-7.7); Neutrophils % 57.3 %; Nucleated Red Blood Cells % 0 %; Platelet Count 261 10^3/cmm (130-400); Red Blood Count 3.82 10^6/uL (4.1-5.3); Red Cell Distribution Width 13.4 % (12.1-15.1); White Blood Count 5.3 10^3/uL (4.0-10.0)
[2021-07-08 12:20] LABS: Troponin(5th) Baseline 29 ng/L (0-10)
[2021-07-08 12:22] LABS: Alanine Aminotransferase < 5 U/L (0-33); Albumin Level 3.7 g/dL (3.5-5.2); Alkaline Phosphatase 155 IU/L (35-105); Anion Gap 12.9 (5-19); Aspartate Amino Transferase 10 U/L (0-32); Blood Urea Nitrogen 6 mg/dL (8-23); Calcium 11.9 mg/dL (8.5-10.5); Carbon Dioxide 30 mmol/L (22-29); Chloride 99 mmol/L (98-107); Creatinine Clr Calc Pharmacy 63.3222; Globulin 3.2 g/dL (1.3-4.6); Glucose 100 mg/dL (65-115); Osmolality Calculated 286 mOsm/kg (285-295); Sodium 139 mmol/L (136-145); Total Bilirubin 0.4 mg/dL (0.15-1.2); Total Protein 6.9 g/dL (6.6-8.7)
[2021-07-08 12:25] LABS: Potassium 2.9 mmol/L (3.5-5.1)
[2021-07-08] MEDS: potassium chloride oral liq 20 mEq/15 mL UDC 60 MEQ PO (12:43)
[2021-07-08] MEDS: aspirin 81 mg Chew Tablet 324 MG PO (12:43)
--- NOTE | 2021-07-08 13:32 | ECG_ITS ---
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 Measurements Intervals [place] Rate: 78 P: DC: QRS: 4 QRSD: 108 T: 33 QT: 369 QTc: 423 Interpretive Statements ECTOPIC ATRIAL RHYHTM LOW QRS VOLTAGE IN PRECORDIAL LEADS [QRS DEFLECTION < 1.0 mV IN CHEST LEADS] INCOMPLETE RIGHT BUNDLE BRANCH BLOCK [90+ ms QRS DURATION, TERMINAL R IN V1/V2, 40+ ms S IN I/aVL/V4/V5/V6] ANTERIOR MYOCARDIAL INFARCTION , PROBABLY RECENT [40+ ms Q WAVE AND/OR ST/T ABNORMALITY IN V3/V4] Compared to ECG 07/08/2021 11:35:10 Low QRS voltage now present ST (T wave) deviation now presentVentricular premature complex(es) no longer present Myocardial infarct finding still present Electronically Signed On 07-08-2021 17:37:16 METALLURGY LABORATORY TECHNICIAN by Adolfo Clemente M.D. [id number]
[2021-07-08 14:03] LABS: Troponin 5 2HR 26.96 ng/L (0-10)
[2021-07-08 14:05] LABS: Troponin 5 2HR Delta -2.04 ABS# (0-10)
[2021-07-08 14:47] VITALS: BP 120/89; RESP 19; O2SAT 92
--- NOTE | 2021-07-14 14:36 | DCPLANNER ---
Addendum entered by Dominique Reddy 10/20/21 06:20: Patient had an outpatient stress test scheduled for 10.23.21 - appointment was cancelled. Addendum entered by Dominique Reddy 09/04/21 21:04: Patient had a follow up appointment scheduled with [facility] for a 48 hour halter monitor - patient did attend appointment. Original Note: customer services manager had message to schedule a follow up appointment for patient. customer services manager had orders for a 48 hour holter monitor, and an out patient stress test. customer services manager faxed a signed order for a stress test to centralized scheduling, who will call patient with appointment information. customer services manager faxed a signed order for a 48 hour halter monitor to [facility], who will call patient with appointment information.
== END 2021-07-08 14:48 | disposition home or self-care (01) ==
PROVIDERS: Emergency Provider Family Medicine; PCP Family Medicine
DX: R07.89 Other chest pain (principal); R00.0 Tachycardia, unspecified; J44.9 Chronic obstructive pulmonary disease, unspecified; Z85.3 Personal history of malignant neoplasm of breast; Z85.038 Personal history of other malignant neoplasm of large intestine
CPT/HCPCS: 80053; 84484; 85025; 93005; 99283; J1642

== ENCOUNTER 2021-07-15 06:00 | Outpatient (CLI) | payer MEDICARE, SELFPAY | END 2021-07-15 06:01 | disposition home or self-care (01) | LOC: RAD 01-26 11:56 | PROVIDERS: PCP Family Medicine; Visit Provider Family Medicine | DX: Z85.038 Personal history of other malignant neoplasm of large intestine (principal) | CPT/HCPCS: 80053 ==

== ENCOUNTER 2021-07-21 11:25 | Outpatient (CLI) | payer MEDICARE, SELFPAY ==
[2021-07-21 12:55] LABS: Basophils % 0.4 %; Eosinophils # 0.1 10^3/uL (0.0-0.8); Eosinophils % 1.4 %; Hematocrit 34.7 % (37.0-47.0); Hemoglobin 11.3 g/dL (11.5-15.3); Lymphocytes # 1.5 10^3/uL (0.8-4.8); Lymphocytes % 20.2 %; Mean Corpuscular HGB Conc 32.6 g/dL (30.0-36.0); Mean Corpuscular Hemoglobin 30.1 pg (28.0-34.0); Mean Corpuscular Volume 92.5 fl (81-99); Mean Platelet Volume 10.6 fL (7.4-10.4); Monocytes # 0.9 10^3/uL (0.2-0.9); Monocytes % 12.7 %; Neutrophils # 4.82 10^3/uL (1.8-7.7); Neutrophils % 65.2 %; Nucleated Red Blood Cells % 0 %; Platelet Count 290 10^3/cmm (130-400); Red Blood Count 3.75 10^6/uL (4.1-5.3); Red Cell Distribution Width 13.8 % (12.1-15.1); White Blood Count 7.4 10^3/uL (4.0-10.0)
[2021-07-21 13:32] LABS: Erythrocyte Sedimentation Rate 23 mm/hr (0-15)
[2021-07-21 13:34] LABS: Calcium 11.3 mg/dL (8.5-10.5)
[2021-07-21 13:42] LABS: Parathyroid Hormone 248.5 pg/mL (15-65)
[2021-07-21 13:47] LABS: Magnesium 1.6 mg/dL (1.7-2.3)
[2021-07-21 13:48] LABS: 25 Hydroxy Vitamin D 35 ng/mL (30-100); Alanine Aminotransferase < 5 U/L (0-33); Albumin Level 3.7 g/dL (3.5-5.2); Alkaline Phosphatase 133 IU/L (35-105); Anion Gap 13.2 (5-19); Aspartate Amino Transferase 12 U/L (0-32); Blood Urea Nitrogen 9 mg/dL (8-23); CA 15-3 27.6 U/mL (0-25); Calcium 11.3 mg/dL (8.5-10.5); Carbon Dioxide 27 mmol/L (22-29); Chloride 100 mmol/L (98-107); Globulin 3.2 g/dL (1.3-4.6); Glucose 95 mg/dL (65-115); Osmolality Calculated 282 mOsm/kg (285-295); Potassium 3.2 mmol/L (3.5-5.1); Sodium 137 mmol/L (136-145); Thyroid Stimulating Hormone 2.09 uIU/mL (0.27-4.20); Total Bilirubin 0.4 mg/dL (0.15-1.2); Total Protein 6.9 g/dL (6.6-8.7)
[2021-07-22 11:47] LABS: PROTEIN, TOTAL 6.4 g/dL (6.1-8.1)
[2021-07-22 14:28] LABS: KAPPA LIGHT CHAIN, FREE, SERUM 35.9 mg/L (3.3-19.4); KAPPA/LAMBDA LIGHT CHAINS FREE 1.25 (0.26-1.65); LAMBDA LIGHT CHAIN, FREE, SERU 28.7 mg/L (5.7-26.3)
[2021-07-22 16:08] LABS: ALBUMIN 3.2 g/dL (3.8-4.8); ALPHA 1 GLOBULIN 0.4 g/dL (0.2-0.3); ALPHA 2 GLOBULIN 0.8 g/dL (0.5-0.9); BETA 1 GLOBULIN 0.4 g/dL (0.4-0.6); BETA 2 GLOBULIN 0.4 g/dL (0.2-0.5); GAMMA GLOBULIN 1.1 g/dL (0.8-1.7)
[2021-07-24 22:23] LABS: PTH Related Peptide (Protein) 12 pg/mL (11-20)
--- NOTE | 2021-07-25 16:18 | ONC FU_ITS ---
Dr. Baron Patient Follow-Up Note Patient: Marta Fraga Unit #: [id number]: 1940 Dicatated By: Kane Baron M.D.Date of Visit:Jul 21, 2021 Onc Med Follow-up/Prog Note Chief Complaint: Colon cancer/breast cancer. 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 She also has been treated for breast cancer. She was admitted to the hospital in October 2011 with suspected neoplasm in the ascending colon. She had been having constipation and hematochezia. CT showed a mass in the ascending colon extending a length of approximately 7 cm, consistent with neoplasm. There was a mild lymphadenopathy within the adjacent mesentery. There was also some question of thickening in the wall of the sigmoid colon. There was no obvious metastatic disease. She was found to have a significantly elevated CEA level at 162 ng/mL. She had attempted colonoscopy but the scope was not able to be advanced beyond the sigmoid colon due to a synchronous lesion in that area. She was then seen by Dr. García in [place] and she underwent hand assisted laparoscopic right hemicolectomy and open low anterior resection on 10/23/11. Pathology in the right colon showed low-grade mucinous adenocarcinoma measuring 6.5 x 5 x 1.7 cm. The tumor was invading through the muscularis propria into the peritoneal fat. There was involvement in 1 of 35 lymph nodes. The sigmoid colon showed diverticulitis with perforation and abscess formation. There were multiple polyps, which included both hyperplastic polyps and adenomas. Within the largest pedunculated polyp there was a well-differentiated invasive adenocarcinoma measuring 2.5 x 1.2 cm. There was invasion into the submucosa. There was no involvement in 28 lymph nodes. She was given adjuvant chemotherapy, initially with modified FOLFOX. However, she experienced severe neurotoxicity with oxaliplatin. It was omitted after the first cycle, and she then continued treatment with 5-FU/leucovorin only. She did receive a total of 12 cycles of treatment, which she completed in May 2012. Following completion of the chemotherapy, she continued followup with Dr. García. She has had multiple polyps on her surveillance colonoscopies, and she was initially placed on a 3-month followup schedule. It was later extended to 6 months, and most recently it was extended to one year. She has additional history of grade 2 infiltrating ductal carcinoma of the right breast, stage IIB (T2, pN1a, M0), ER/NC negative. HER-2/angel was equivocal (2+ by IHC). Her treatment included right modified radical mastectomy in January 2001 followed by adjuvant chemotherapy with 6 cycles of Adriamycin/cyclophosphamide and by prophylactic chest wall radiation. Treatment was completed in 2001. Her other medical illnesses include COPD, osteoporosis, and depression. She has had evidence of vitamin D deficiency. She has history of smoking a pack to a pack and a half of cigarettes daily. She is seen for a scheduled visit. She complains that her energy is very low. She tires very quickly, and she has very limited activity. She is now having to have help taking a shower. Her ECOG score is 3. Appetite is not very good. She is not having fever or night sweats. She complains that her throat is sometimes irritated. She has cough when she first gets up in the morning and off and on during the daytime. She brings up whitish-capellan sputum. She is short of breath with activity, and her breathing is getting worse. She is still smoking a pack of cigarettes daily. She sometimes has burning in her chest. She occasionally has nausea and she occasionally has acid reflux. She says her bowel function is not the greatest. She has urinary frequency and nocturia. She has been having horrible back problems, but not as bad recently since she started taking hydrocodone/APAP. She also has neck pain and fibromyalgia pain. She has occasional headache she tends to get dizzy when she is looking up. She occasionally has numbness in her fingers. Medications: Advair Diskus 1 puff(s) (of 250-50 mcg/dose) Aerosol Powder, Breath Activated Inhalation b.i.d., Aspirin 1 Tablet (of 81 mg) Tablet, chewable Oral daily, Ativan (1 mg) Tablet Oral Take as Directed, DilTIAZem HCl ER 1 Tablet (of 120 mg) Capsule SR 12 HR Oral daily, HydroCHLOROthiazide 1 (25 mg) Tablet Oral daily, HYDROcodone-Acetaminophen 1 Tablet Oral q 4 hours PRN, Isosorbide Mononitrate 1 Tablet Oral daily, ProAir HFA 1 (108 (90 base) mcg/act) Aerosol, solution Inhalation PRN, Spiriva HandiHaler 1 (18 mcg) Capsule Inhalation daily, Tylenol 1 - 2 (325 mg) Tablet Oral q 4 hours PRN Allergies: Codeine Sulfate Vital Signs: Performed on Jul 21, 2021 11:51 Height - 67.00 in Weight - 173.8 lbs (LOW) BSA - 1.90 sq.m BMI - 27.22 Temperature - 98.6 F Pulse - 105 /min (HIGH) Respiration - 20 /min BP - 168/68 mm(hg) (HIGH) O2 Sat - 95 % (LOW) Pain - 0 Fatigue - 7 Physical Examination: Constitutional - She appears generally weak and chronically ill, Eyes - Sclerae nonicteric. Conjunctivae clear, ENMT - No lesions noted in the oral cavity, Hematologic/Lymphatic - No cervical, clavicular, or axillary adenopathy, Respiratory - Lungs sound clear with diminished air movement bilaterally, Cardiovascular - Heart rhythm is irregular. There is a II/ systolic murmur. There is no gallop or rub noted, Abdomen - Soft. Liver and spleen are not enlarged. There is no abdominal mass or ascites noted. There is no inguinal adenopathy, Extremities - There are mild venous stasis changes and there is mild lower extremity edema. There are purpuric lesions on both arms, Neurologic - No focal neurologic deficits noted. Lab/Imaging: Her laboratory studies from 07/08/2021 included CBC showing hemoglobin 11.4 g, white blood cell count 5300, and platelet count 261,000. Comprehensive metabolic profile at that time showed normal renal function with BUN 6 and creatinine 0.6 mg/dL. Alkaline phosphatase was mildly elevated at 155/105 IU/L. The bilirubin and the other liver enzymes were normal. Her calcium was mildly elevated at 11.9 mg/dL with albumin 3.7 g/dL. A repeat chemistry on 07/15/2021 showed further increase in the calcium to 12.3 mg/dL. Problem List: 1. Low-grade adenocarcinoma the ascending colon, stage IIIB, with synchronous adenocarcinoma of the sigmoid colon, stage I. 2. She has had multiple polyps on surveillance colonoscopy, and she has continued close surveillance. 3. She has a prior history of grade 2 infiltrating duct carcinoma the right breast, stage IIB, ER/NC negative and HER-2/angel equivocal. 4. COPD with continued smoking. 5. Osteoporosis. 6. Vitamin D deficiency. 7. Anxiety/depression. Problems Addressed with this Encounter and Plan: 1. Patient with new onset of hypercalcemia. The cause is uncertain. She will have additional laboratory studies today to include CBC, comprehensive metabolic profile, parathyroid hormone level and PTH related peptide, 25-hydroxy vitamin D level, sed rate, serum protein electrophoresis, and free light chain assay. I also will check tumor markers and TSH. She will have further evaluation as indicated. 2. She has a history of low-grade adenocarcinoma the ascending colon, stage IIIB, with synchronous adenocarcinoma of the sigmoid colon, stage I. Treatment included hand-assisted laparoscopic right hemicolectomy and an open low anterior resection in October 2011 followed by adjuvant chemotherapy, completed in May 2012. She has had multiple polyps on surveillance colonoscopy, and she has continued close surveillance. However, thus far during follow-up, there has been no evidence of recurrence of the colon cancer. She remains on observation/expectant management. 2. She has a prior history of grade 2 infiltrating duct carcinoma the right breast, stage IIB, ER/NC negative and HER-2/angel equivocal (2+ by IHC). Treatment included right modified radical mastectomy followed by adjuvant chemotherapy with 6 cycles of AC and by prophylactic chest wall radiation, completed in 2001. There has been no evidence of recurrence of the breast cancer. She continues surveillance with yearly unilateral left diagnostic mammogram. Signed By: Kane Baron M.D. <<Signature on File>>
== END 2021-07-21 11:26 | disposition home or self-care (01) ==
PROVIDERS: PCP Family Medicine; Visit Provider Internal Medicine Medical Oncology
DX: Z08 Encounter for follow-up examination after completed treatment for malignant neoplasm (principal); Z85.038 Personal history of other malignant neoplasm of large intestine; Z85.3 Personal history of malignant neoplasm of breast; Z86.010 Personal history of colon polyps; J44.9 Chronic obstructive pulmonary disease, unspecified; F17.210 Nicotine dependence, cigarettes, uncomplicated; M81.0 Age-related osteoporosis without current pathological fracture; E55.9 Vitamin D deficiency, unspecified; F41.9 Anxiety disorder, unspecified; F32.A Depression, unspecified; Z79.899 Other long term (current) drug therapy; Z92.21 Personal history of antineoplastic chemotherapy; Z90.11 Acquired absence of right breast and nipple
CPT/HCPCS: 36591; 80053; 82306; 82310; 82378; 82542; 83735; 83883; 83970; 84155; 84165; 84443; 85025; 85651; 86300; 99214

== ENCOUNTER → 2021-09-03 10:57 | Outpatient (BNVA) | payer MEDICARE, SELFPAY | PROVIDERS: PCP Family Medicine; Referring Provider Internal Medicine Medical Oncology; Visit Provider Internal Medicine | DX: E05.90 Thyrotoxicosis, unspecified without thyrotoxic crisis or storm (principal); E21.0 Primary hyperparathyroidism; E87.5 Hyperkalemia; F17.210 Nicotine dependence, cigarettes, uncomplicated | CPT/HCPCS: 99204 ==

== ENCOUNTER 2021-09-03 12:24 | Outpatient (CLI) | payer MEDICARE, SELFPAY | END 2021-09-03 12:25 | disposition home or self-care (01) | PROVIDERS: PCP Family Medicine; Visit Provider Internal Medicine | DX: E87.5 Hyperkalemia (principal); E21.0 Primary hyperparathyroidism | CPT/HCPCS: 36591; 80048; 82310; 83970; 99204 ==

== ENCOUNTER 2021-10-22 13:02 | Outpatient (CLI) | payer MEDICARE, SELFPAY ==
--- NOTE | 2021-10-22 13:09 | MM_ITS ---
WS: [id number] LEFT 3D TOMOSYNTHESIS DIGITAL MAMMOGRAPHY WITH CAD CLINICAL INFORMATION: HX OF BREAST CANCER COMPARISON: August 21, 2020 TECHNIQUE: 3 views of the left breast were obtained. FINDINGS: Scattered fibroglandular densities of the left breast. Coarse punctate and vascular calcifications. No suspicious focal mass, asymmetry, calcifications, or architectural distortion. No evidence of arvin gnancy. MM/[place] [id number] IMPRESSION: BI-RADS: 2-Benign FOLLOW UP: 1 Year Follow-up Recommend return to annual diagnostic mammography.
== END 2021-10-22 13:03 | disposition home or self-care (01) ==
PROVIDERS: PCP Family Medicine; Visit Provider Internal Medicine Medical Oncology
DX: Z85.3 Personal history of malignant neoplasm of breast (principal)
CPT/HCPCS: 77061

== ENCOUNTER 2021-10-22 13:39 | Oncology outpatient (recurring) (ONCR) | payer MEDICARE, SELFPAY | END 2021-10-30 23:59 | disposition home or self-care (01) | PROVIDERS: PCP Family Medicine; Visit Provider Internal Medicine Medical Oncology | DX: Z08 Encounter for follow-up examination after completed treatment for malignant neoplasm (principal); Z85.3 Personal history of malignant neoplasm of breast; Z85.038 Personal history of other malignant neoplasm of large intestine; F17.210 Nicotine dependence, cigarettes, uncomplicated; Z92.21 Personal history of antineoplastic chemotherapy; Z90.11 Acquired absence of right breast and nipple; Z92.3 Personal history of irradiation; Z79.899 Other long term (current) drug therapy | CPT/HCPCS: 96523; 99203; 99204; G0463 ==

== ENCOUNTER 2021-11-05 09:09 | Oncology outpatient (recurring) (ONCR) | payer MEDICARE, SELFPAY ==
[2021-11-05 09:54] LABS: Anion Gap 14.5 (5-19); Blood Urea Nitrogen 7 mg/dL (8-23); Calcium 13.1 mg/dL (8.5-10.5); Carbon Dioxide 29 mmol/L (22-29); Chloride 96 mmol/L (98-107); Glucose 100 mg/dL (65-115); Osmolality Calculated 280 mOsm/kg (285-295); Potassium 3.5 mmol/L (3.5-5.1); Sodium 136 mmol/L (136-145)
[2021-11-05 10:20] LABS: Calcium 13.5 mg/dL (8.5-10.5)
[2021-11-05 10:26] LABS: Parathyroid Hormone 173.6 pg/mL (15-65)
== END 2021-11-30 23:59 | disposition home or self-care (01) ==
LOC: ONCMED 09:09
PROVIDERS: Internal Medicine; PCP Family Medicine; Visit Provider Internal Medicine Medical Oncology
DX: E87.5 Hyperkalemia (principal); E21.0 Primary hyperparathyroidism
CPT/HCPCS: 36415; 80048; 82310; 83970; 99214

== ENCOUNTER → 2021-11-10 09:28 | Outpatient (BNVA) | payer MEDICARE, SELFPAY | PROVIDERS: PCP Family Medicine; Visit Provider Internal Medicine | DX: E21.0 Primary hyperparathyroidism (principal); E87.5 Hyperkalemia | CPT/HCPCS: 80053; 82310; 83970 ==

== ENCOUNTER → 2021-11-18 08:49 | Outpatient (BNVA) | payer MEDICARE, SELFPAY | PROVIDERS: PCP Family Medicine; Visit Provider Internal Medicine | DX: E21.0 Primary hyperparathyroidism (principal); E87.5 Hyperkalemia; Z95.828 Presence of other vascular implants and grafts | CPT/HCPCS: 82310; 83970 ==

== ENCOUNTER → 2022-01-19 09:59 | Outpatient (BNVA) | payer MEDICARE, SELFPAY | PROVIDERS: PCP Family Medicine; Visit Provider Internal Medicine | DX: E21.0 Primary hyperparathyroidism (principal) | CPT/HCPCS: 82310; 83970 ==

== ENCOUNTER → 2022-02-16 15:42 | Outpatient (BNVA) | payer MEDICARE, SELFPAY | PROVIDERS: PCP Family Medicine; Visit Provider Internal Medicine | DX: I49.9 Cardiac arrhythmia, unspecified (principal); R06.02 Shortness of breath; R07.9 Chest pain, unspecified | CPT/HCPCS: 99213; 99214 ==

== ENCOUNTER 2022-05-14 14:06 | Oncology outpatient (recurring) (ONCR) | payer MEDICARE, SELFPAY ==
[2022-05-14 15:34] LABS: Basophils % 0.3 %; Eosinophils # 0.3 10^3/uL (0.0-0.8); Hematocrit 32.3 % (37.0-47.0); Hemoglobin 10.2 g/dL (11.5-15.3); Lymphocytes # 1.4 10^3/uL (0.8-4.8); Lymphocytes % 19.2 %; Mean Corpuscular HGB Conc 31.6 g/dL (30.0-36.0); Mean Corpuscular Hemoglobin 30.2 pg (28.0-34.0); Mean Corpuscular Volume 95.6 fl (81-99); Mean Platelet Volume 11.3 fL (7.4-10.4); Monocytes # 0.8 10^3/uL (0.2-0.9); Monocytes % 11.3 %; Neutrophils # 4.39 10^3/uL (1.8-7.7); Neutrophils % 62.5 %; Nucleated Red Blood Cells % 0 %; Platelet Count 260 10^3/cmm (130-400); Red Blood Count 3.38 10^6/uL (4.1-5.3); Red Cell Distribution Width 15.8 % (12.1-15.1)
[2022-05-14 16:04] LABS: Alanine Aminotransferase < 5 U/L (0-33); Albumin Level 3.7 g/dL (3.5-5.2); Alkaline Phosphatase 102 U/L (35-105); Anion Gap 13.9 (5-19); Aspartate Amino Transferase 11 U/L (0-32); Blood Urea Nitrogen 9 mg/dL (8-23); Calcium 11.7 mg/dL (8.5-10.5); Carbon Dioxide 29 mmol/L (22-29); Chloride 99 mmol/L (98-107); Globulin 2.9 g/dL (1.3-4.6); Glucose 88 mg/dL (65-115); Osmolality Calculated 284 mOsm/kg (285-295); Potassium 3.9 mmol/L (3.5-5.1); Sodium 138 mmol/L (136-145); Thyroid Stimulating Hormone 3.46 uIU/mL (0.27-4.20); Total Bilirubin 0.4 mg/dL (0.15-1.2); Total Protein 6.6 g/dL (6.6-8.7)
[2022-05-14 19:39] LABS: 25 Hydroxy Vitamin D 23 ng/mL (30-100)
== END 2022-06-02 23:59 | disposition home or self-care (01) ==
PROVIDERS: PCP Family Medicine; Visit Provider Internal Medicine Medical Oncology
DX: E21.0 Primary hyperparathyroidism (principal); R06.02 Shortness of breath; Z85.038 Personal history of other malignant neoplasm of large intestine; Z92.21 Personal history of antineoplastic chemotherapy; Z90.49 Acquired absence of other specified parts of digestive tract; Z90.11 Acquired absence of right breast and nipple; Z85.3 Personal history of malignant neoplasm of breast; Z92.3 Personal history of irradiation; R53.83 Other fatigue
CPT/HCPCS: 36591; 80053; 82306; 84443; 85025; 99214

== ENCOUNTER 2022-07-28 13:36 | Oncology outpatient (recurring) (ONCR) | payer MEDICARE, SELFPAY ==
[2022-07-28] MEDS: denosumab 60 mg SDV SUBCUT (14:01)
[2022-07-28 14:15] VITALS: BP 102/44; PULSE 58; RESP 20; TEMP 36.3; O2SAT 91
== END 2022-07-31 23:59 | disposition home or self-care (01) ==
PROVIDERS: PCP Family Medicine; Visit Provider Internal Medicine Medical Oncology
DX: E21.0 Primary hyperparathyroidism (principal); M81.0 Age-related osteoporosis without current pathological fracture; Z45.2 Encounter for adjustment and management of vascular access device; Z79.899 Other long term (current) drug therapy
CPT/HCPCS: 96402; 96523; J0897

== ENCOUNTER 2022-08-24 07:00 | Outpatient (CLI) | payer MEDICARE, SELFPAY ==
--- NOTE | 2022-08-24 07:16 | CT_ITS ---
WS: [id number] CT ABDOMEN PELVIS TECHNIQUE: Contrast-enhanced CT of the abdomen and pelvis with coronal and sagittal reformatted image s. CLINICAL INFORMATION: ABDOMINAL PAIN COMPARISON: 2016 and 2012. DLP: 300.[address] scans at [facility] use at least one of these dose optimization techniques: automated e xposure control; mA and/or kV adjustment per patient size (includes targeted exams where dose is matc hed to clinical indication); or iterative reconstruction. FINDINGS: Prior postoperative changes partial ascending and sigmoid colon resection with end-to-end anastomosis . T12 compression fracture is stable. Prior cholecystectomy. Normal portal vein and splenic vein. Nor mal liver. A few splenic granulomas. Small RIGHT pleural effusion with interstitial thickening in the lung bases. Chronic emphysematous changes. Fatty atrophy of the pancreas. Normal caliber abdominal a james. Aortic calcification. Stable [place] lower ventral abdominal wall hernia containing multiple loops of small bowel. No tiffanie dence of strangulation. This is similar in appearance to previous. Diffuse body wall anasarca. Thorac olumbar scoliosis. Chronic appearing compression at T11 and L1 with anterior wedging. Cardiomegaly. Moderate pericardial effusion. CT/CT abdomen pelvis w con* [id number] IMPRESSION: 1. No evidence of recurrent or progressive metastatic disease in the abdomen o r pelvis. 2. No periaortic or retroperitoneal lymphadenopathy. 3. Prior postoperative changes partial ascending and sigmoid colon resection w ith end-to-end anastomosis. 4. Stable [place] lower ventral abdominal wall hernia containing multiple lo ops of opacified small bowel. No evidence of acute strangulation. 5. Diffuse body wall anasarca. 6. Cholecystectomy. 7. Cardiomegaly with moderate pericardial effusion partially visualized. 8. Small RIGHT pleural effusion with interstitial infiltrates in the lung base s. Recommend correlation for pneumonia. Some this may be due to interstitial ed kendrick. 9. Stable T12 compression.Chronic appearing compression at T11 and L1 with ant erior wedging.
[2022-08-24] MEDS: iohexol 350 mg/mL 500 mL Btl (per mL) PO (08:26)
[2022-08-24 09:17] LABS: Blood Urea Nitrogen 7 mg/dL (8-23)
[2022-08-24] MEDS: iohexol 350 mg/mL 500 mL Btl (per mL) IV (09:32)
== END 2022-08-24 07:01 | disposition home or self-care (01) ==
LOC: RAD 07:03
PROVIDERS: PCP Nurse Practitioner Family; Visit Provider Family Medicine
DX: R10.9 Unspecified abdominal pain (principal); R60.1 Generalized edema; Z90.49 Acquired absence of other specified parts of digestive tract; I51.7 Cardiomegaly; J90 Pleural effusion, not elsewhere classified; S22.080A Wedge compression fracture of T11-T12 vertebra, initial encounter for closed fracture; X58.XXXA Exposure to other specified factors, initial encounter
CPT/HCPCS: 36591; 74177; 82565; 84520; J2997; Q9967

== ENCOUNTER 2022-09-26 00:19 | Inpatient (IN) | payer MEDICARE, SELFPAY ==
[2022-09-26] VITALS (21 sets, daily range): BP systolic 90–119; BP diastolic 59–75; PULSE 75–118; RESP 6–47; TEMP 36.4–36.9; O2SAT 91–98
--- NOTE | 2022-09-26 00:27 | XRR_ITS ---
PROCEDURE INFORMATION: Exam: XR Chest Exam date and time: 09/26/2022 12:55 AM Age: 82 years old Clinical indication: Pain; Chest pressure; Additional info: Cp TECHNIQUE: Imaging protocol: Radiologic exam of the chest. Views: 1 view. COMPARISON: CT ch meghana wo/w [id number] 07/30/2016 10:25 AM FINDINGS: Tubes, catheters and devices: Left chest port terminates within distal SVC. Lungs: Prominent increased interstitial lung markings bilaterally. Negative for pulmonary consolidation. Prominent central pulmonary vascularity in both lungs. Pleural spaces: Query small pleural effusions. Negative for pneumothorax. Heart/Mediastinum: Enlarged cardiomediastinal silhouette. Bones/joints: Unremarkable. XR/XR chest 1V portable [id number] IMPRESSION: Pulmonary vascular congestion changes with interstitial edema suspected.
--- NOTE | 2022-09-26 00:34 | ECG_ITS ---
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 Measurements Intervals [place] Rate: 125 P: 0 [place]: 0 QRS: 32 QRSD: 110 T: 30 QT: 350 QTc: 505 Interpretive Statements ATRIAL FIBRILLATION WITH RAPID VENTRICULAR RESPONSE SEPTAL MYOCARDIAL INFARCTION , OF INDETERMINATE AGE [40+ ms Q WAVE IN V1/V2] Compared to ECG 07/08/2021 13:36:45 Incomplete right bundle-branch block no longer present Myocardial infarct finding still present Electronically Signed On 09-26-2022 6:51:53 CDT by Adolfo Clemente M.D. [email or web address] [email or web address]/store/OM/[id number]
[2022-09-26] MEDS: ipratropium 0.5 mg/2.5 mL Neb INHALATION (00:39)
[2022-09-26] MEDS: albuterol 2.5 mg/3 mL Neb INHALATION (00:39)
--- NOTE | 2022-09-26 00:40 | PC.NURSE ---
Pt placed on bedside furnace tender
--- NOTE | 2022-09-26 00:44 | ED_ITS ---
HPI - Chest Pain General: Chief Complaint: Chest Pain Stated Complaint: SOB Time Seen by Provider: 09/26/22 00:23 Source: patient and EMS Mode of arrival: EMS Limitations: no limitations History of Present Illness: 82-year-old female has a history of COPD she is on 2 L of oxygen at baseline at home states that today she has been having some increasing dyspnea along with pressure type pain in her chest with palpitations. She denies any fever she has had increased cough states that her PCP take her off Lasix recently. She does appear to be A-fib with RVR here no known history of atrial fib Associated symptoms: Reports dyspnea; Deny abdominal pain, fever(s), nausea or vomiting Review of Systems Const: Denies: fever(s), chills, body aches or change in appetite Eyes: Denies: blurry vision or eye discomfort ENMT: Denies: throat pain or dental pain Card: Reports: chest pain Resp: Reports: dyspnea GI: Denies: abdominal pain, nausea, vomiting or diarrhea : Denies: dysuria Musc: Denies: neck pain or back pain Skin/Breast: Denies: rash Neuro: Denies: headache(s) Psych: Denies: depression PFSH ED PFSH: Medical History Anxiety Breast cancer Colon cancer COPD (chronic obstructive pulmonary disease) Depression Osteoporosis Port-A-Cath in place Primary hyperparathyroidism Skin cancer Surgical History History of partial colectomy (~2011) Right hemicolectomy and low anterior resection Hx of cataract surgery Hx of cholecystectomy Hx of right mastectomy (2000) Right modified radical mastectomy Hx of tubal ligation Family History Sister Anesthesia complication Cancer breast Daughter CAD (coronary artery disease) Hyperlipidemia Brother CAD (coronary artery disease) Grandfather Cancer skin Father Cancer skin Brother Cancer skin Mother Dementia Other Hypertension Lung disease Suicide Denies family history of Diabetes Clotting disorder Psychiatric illness Chronic kidney disease (CKD) Bleeding disorder Stroke Social History Smoking and tobacco status: former smoker Substance/Drug Use: never Physical Exam Const: COMMON NORMALS: patient oriented x3 HENMT: COMMON NORMALS: normocephalic and atraumatic HEAD & SCALP: normocephalic and atraumatic Eye: COMMON NORMALS: Equal, round and reactive pupils present and EOMs intact bilaterally PUPIL: Yes Equal, round and reactive pupils present Neck/C-Spine: COMMON NORMALS: full ROM and supple Chest: COMMONS NORMALS: normal inspection of the chest and normal palpation of entire chest wall Resp: COMMON NORMALS: normal respiratory effort, No retractions and No use of accessory muscles AUSCULTATION: wheezes Cardio: COMMON NORMALS: No murmurs present (Cardio) RATE: tachycardic RHYTHM: abnormal rhythm irregularly irregular GI: COMMON NORMALS: Normal to inspection, nondistended, normoactive bowel sounds present, Soft to palpation, non-tender and no masses PALPATION: Yes Soft to palpation Extremity: COMMON NORMALS: full ROM OTHER: 2+ edema Neuro: COMMON NORMALS: patient oriented x3, moves all extremities and no focal motor deficits Psych: COMMON NORMALS: mental status grossly normal, Normal thought process present and cooperative THOUGHT PROCESS: Normal thought process present Skin: COMMON NORMALS: no rashes or lesions noted and no wounds GENERAL SKIN EXAM: no rashes or lesions noted Course Vital Signs: Vital signs: Vital Signs Temperature 97.6 F 09/26/22 00:20 Pulse Rate 107 H 09/26/22 00:47 Respiratory Rate 16 09/26/22 00:39 Blood Pressure 118/70 09/26/22 00:20 Pulse Oximetry 97 09/26/22 00:39 Oxygen Delivery Me thod Nasal Cannula 09/26/22 00:39 Oxygen Flow Rate 3 09/26/22 00:39 MDM - Chest Pain Medical Decision Making Patient presents here with chest pain she is in A-fib with RVR I did give her 10 of Cardizem her heart rate is now 90 she has not been taking her Lasix her BNP is 20,000 does have some leg edema no severe respiratory distress spoke to hospitalist will admit at this time for observation. Medical Records I reviewed the patient's medical records. Lab Data I reviewed the patient's lab results. 09/26/22 00:47 09/26/22 00:47 Radiology Impressions Chest X-Ray 09/26/22 00:27 IMPRESSION: Pulmonary vascular congestion changes with interstitial edema suspected. Laboratory Results WBC 6.9 10^3/uL (4.0-10.0) 09/26/22 00:47 RBC 3.56 10^6/uL (4.1-5.3) L 09/26/22 00:47 Hgb 10.3 g/dL (11.5-15.3) L 09/26/22 00:47 Hct 33.5 % (37.0-47.0) L 09/26/22 00:47 MCV 94.1 fl (81-99) 09/26/22 00:47 MCH 28.9 pg (28.0-34.0) 09/26/22 00:47 MCHC 30.7 g/dL (30.0-36.0) 09/26/22 00:47 RDW 17.3 % (12.1-15.1) H 09/26/22 00:47 Plt Count 219 10^3/cmm (130-400) 09/26/22 00:47 MPV 10.8 fL (7.4-10.4) H 09/26/22 00:47 Neut % (Auto) 63.3 % 09/26/22 00:47 Lymph % (Auto) 23.6 % 09/26/22 00:47 [place] % (Auto) 12.3 % 09/26/22 00:47 Eos % (Auto) 0.4 % 09/26/22 00:47 Baso % (Auto) 0.1 % 09/26/22 00:47 Neut # (Auto) 4.37 10^3/uL (1.8-7.7) 09/26/22 00:47 Lymph # (Auto) 1.6 10^3/uL (0.8-4.8) 09/26/22 00:47 [place] # (Auto) 0.9 10^3/uL (0.2-0.9) 09/26/22 00:47 Eos # (Auto) 0.0 10^3/uL (0.0-0.8) 09/26/22 00:47 Baso # (Auto) 0.0 10^3/uL (0.0-0.1) 09/26/22 00:47 Nucleated RBC % (auto) 0 % 09/26/22 00:47 Nucleated RBCs # 0.0 /100WBC 09/26/22 00:47 PT 13.30 SECONDS (12.1-14.9) 09/26/22 00:47 INR 0.99 (0.8-1.2) 09/26/22 00:47 Sodium 136 mmol/L (136-145) 09/26/22 00:47 Potassium 3.7 mmol/L (3.5-5.1) 09/26/22 00:47 Chloride 100 mmol/L (98-107) 09/26/22 00:47 Carbon Dioxide 29 mmol/L (22-29) 09/26/22 00:47 Anion Gap 10.7 (5-19) 09/26/22 00:47 BUN 9 mg/dL (8-23) 09/26/22 00:47 Creatinine 0.7 mg/dL (0.5-0.9) 09/26/22 00:47 GFR Calculation Not Reportable 09/26/22 00:47 Glucose 98 mg/dL (65-115) 09/26/22 00:47 Calculated Osmolality 281 mOsm/kg (285-295) L 09/26/22 00:47 Calcium 9.0 mg/dL (8.5-10.5) 09/26/22 00:47 Total Bilirubin 0.5 mg/dL (0.15-1.2) 09/26/22 00:47 AST 12 U/L (0-32) 09/26/22 00:47 ALT 6 U/L (0-33) 09/26/22 00:47 Alkaline Phosphatase 99 U/L (35-105) 09/26/22 00:47 Troponin T Baseline 37 ng/L (0-10) H 09/26/22 00:47 Troponin T 120 Minute 37.37 ng/L (0-10) H 09/26/22 02:05 Delta Troponin T 0.37 ABS# (0-10) 09/26/22 02:05 NT-Pro-B Natriuret Pep 80746 pg/mL (0-450) H 09/26/22 00:47 Total Protein 5.9 g/dL (6.6-8.7) L 09/26/22 00:47 Albumin 3.0 g/dL (3.5-5.2) L 09/26/22 00:47 Globulin 2.9 g/dL (1.3-4.6) 09/26/22 00:47 EKG Data EKG 1: I personally reviewed and interpreted this EKG as follows: EKG interpretation date: 09/26/22 EKG interpretation time: 00:34 Interpretation: afib with rvr hr [address] or twave abnormalities qrs 110 qtc 424 Discharge Plan Discharge Patient Disposition: Admitted As Inpatient Admit Provider: Nancy Jurado Clinical Impression: Chest pain, Atrial fibrillation with rapid ventricular response, Leg edema Condition: Stable Coding Level of Care Code ED Ash Conveyor Operator for Yoel Gastelum
[2022-09-26] MEDS: dexamethasone 10 mg/mL INJ IVP ×2 (00:45→16:11)
[2022-09-26] MEDS: dilTIAZem 5 mg/mL SDV 5 mL IVP (00:47)
--- NOTE | 2022-09-26 00:50 | PC.NURSE ---
Left chest mediport accessed without difficulty, pt tolerated well, blood drawn and taken to lab
[2022-09-26 01:02] LABS: Basophils % 0.1 %; Eosinophils % 0.4 %; Hematocrit 33.5 % (37.0-47.0); Hemoglobin 10.3 g/dL (11.5-15.3); Lymphocytes # 1.6 10^3/uL (0.8-4.8); Lymphocytes % 23.6 %; Mean Corpuscular HGB Conc 30.7 g/dL (30.0-36.0); Mean Corpuscular Hemoglobin 28.9 pg (28.0-34.0); Mean Corpuscular Volume 94.1 fl (81-99); Mean Platelet Volume 10.8 fL (7.4-10.4); Monocytes # 0.9 10^3/uL (0.2-0.9); Monocytes % 12.3 %; Neutrophils # 4.37 10^3/uL (1.8-7.7); Neutrophils % 63.3 %; Nucleated Red Blood Cells % 0 %; Platelet Count 219 10^3/cmm (130-400); Red Blood Count 3.56 10^6/uL (4.1-5.3); Red Cell Distribution Width 17.3 % (12.1-15.1); White Blood Count 6.9 10^3/uL (4.0-10.0)
[2022-09-26 01:14] LABS: INR 0.99 (0.8-1.2)
[2022-09-26 01:20] LABS: Troponin(5th) Baseline 37 ng/L (0-10)
[2022-09-26 01:27] LABS: Alanine Aminotransferase 6 U/L (0-33); Alkaline Phosphatase 99 U/L (35-105); Anion Gap 10.7 (5-19); Aspartate Amino Transferase 12 U/L (0-32); Blood Urea Nitrogen 9 mg/dL (8-23); Carbon Dioxide 29 mmol/L (22-29); Chloride 100 mmol/L (98-107); Globulin 2.9 g/dL (1.3-4.6); Glucose 98 mg/dL (65-115); NT Pro B Type Natriuretic Pept 20179 pg/mL (0-450); Osmolality Calculated 281 mOsm/kg (285-295); Potassium 3.7 mmol/L (3.5-5.1); Sodium 136 mmol/L (136-145); Total Bilirubin 0.5 mg/dL (0.15-1.2); Total Protein 5.9 g/dL (6.6-8.7)
--- NOTE | 2022-09-26 02:28 | ECG_ITS ---
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 Measurements Intervals [place] Rate: 102 P: -74 [place]: 189 QRS: -47 QRSD: 111 T: 56 QT: 366 QTc: 478 Interpretive Statements ECTOPIC ATRIAL TACHYCARDIA WITH OCCASIONAL SUPRAVENTRICULAR PREMATURE COMPLEXES LEFT AXIS DEVIATION [QRS AXIS < -30] ANTEROSEPTAL MYOCARDIAL INFARCTION , OF INDETERMINATE AGE [40+ ms Q WAVE IN V1-V4] Compared to ECG 09/26/2022 00:34:41 Left-axis deviation now present Atrial fibrillation no longer present Myocardial infarct finding still present Electronically Signed On 09-26-2022 6:56:33 CDT by Adolfo Clemente M.D. [id number]
[2022-09-26 02:45] LABS: Troponin 5 2HR 37.37 ng/L (0-10)
[2022-09-26] MEDS: FUROsemide 10 mg/mL SDV 4mL 40 MG IVP (02:54)
[2022-09-26 02:55] LABS: Troponin 5 2HR Delta 0.37 ABS# (0-10)
--- NOTE | 2022-09-26 03:11 | PM.HP ---
Providers/Chief Complaint Admitting Physician: Nancy Jurado MD Primary Care Provider: Louisa Diaz Chief Complaint: SOB History of Present Illness Marta Fraga is a 82 year old female with history of breast cancer, colon cancer, COPD, depression, primary hyperparathyroidism, hypercalcemia, skin cancer, anxiety who presented to the hospital today with complaint of increasing shortness of breath. She states that it is difficult to breathe. She is on 2 L of oxygen at baseline at home. She also endorses chest pain that feels like a pressure in the middle of her chest along with palpitations. She says she has been having some diarrhea for the last 6 weeks. Prior to that she was on antibiotics for UTI. She states that she has had constipation for the last 1-1/2 years however the diarrhea started 6 weeks ago and she has been managing at home with Imodium and medications [id number]. She does have a history of colon resection due to colon cancer in 1998. Patient does not have chronic diarrhea. She says she feels dehydrated at times. He says the chest pain she has is in a bandlike fashion in epigastric region which tightens and then eases up. She says since she came to the ER and was given Lasix she is starting to feel better already. She denies a history of atrial fibrillation however in ER on EKG she was found to be in A-fib with RVR. She was given 10 of Cardizem IV and Lasix 40 IV x1. Denies fever, nausea, vomiting, diarrhea, constipation. Patient does have a Port-A-Cath in place. Labs show BNP 20,000, hemoglobin 10.3, WBC 6.9, platelet 219, sodium 136, potassium 3.7, creatinine 0.7. Baseline troponin 37, 2-hour troponin 37.37 delta of 0.37. Chest x-ray shows pulmonary vascular congestion with interstitial edema suspected. Patient also states that recently her Lasix that she was taking as an outpatient was stopped by her doctor. She is on Lasix 20 mg daily. She says her blood pressure was starting to be low and that is why Lasix was held as an outpatient. Medications/Allergies Home Medications Medication Instructions Recorded Confirmed Last Taken Type acetaminophen 325 mg tablet 325 mg PO Q4-5H PRN Pain 07/24/20 09/21/22 11/14/20 History (Tylenol) Fast Form Cock Up Splint #1 ea 08/02/21 05/22/23 Unknown Rx aspirin 81 mg tablet,delayed 81 mg PO DAILY #30 tabs 07/08/21 09/21/22 Unknown Rx release isosorbide mononitrate 30 mg 30 mg PO DAILY #30 tabs 07/08/21 09/21/22 Unknown Rx tablet,extended release 24 hr diltiazem HCl 120 mg 120 mg PO DAILY 09/03/21 09/21/22 Unknown History capsule,extended release 12 hr meclizine 25 mg tablet 25 mg PO DAILY PRN 09/03/21 09/21/22 Unknown History potassium chloride 10 mEq 10 meq PO DAILY PRN 10/14/21 09/21/22 Unknown History capsule,extended release alprazolam 0.25 mg tablet (Xanax) 0.25 mg PO DAILY PRN anxiety #30 04/15/22 09/21/22 Unknown Rx tabs magnesium oxide 400 mg PO DAILY PRN 05/14/22 09/21/22 Unknown History hydrocodone 5 mg-acetaminophen 325 1 tab PO Q6H PRN pain 7 days #30 08/03/22 09/21/22 Unknown Rx mg tablet tabs diazepam 5 mg tablet (Valium) 5 mg PO ONCE PRN anxiety #1 tab 08/18/22 09/21/22 Unknown Rx furosemide 20 mg tablet 20 mg PO DAILY 09/21/22 09/21/22 Unknown History Allergies Allergy/AdvReac Type Severity Reaction Status Date / Time cinacalcet Allergy ALGY-Swell Verified 09/26/22 00:39 Lip/Tongue/Throat codeine Allergy ADR-Nausea Verified 09/26/22 00:39 PFSH Acute PFSH: Medical History Anxiety Breast cancer Colon cancer COPD (chronic obstructive pulmonary disease) Depression Osteoporosis Port-A-Cath in place Primary hyperparathyroidism Skin cancer Surgical History History of partial colectomy (~2011) Right hemicolectomy and low anterior resection Hx of cataract surgery Hx of cholecystectomy Hx of right mastectomy (2000) Right modified radical mastectomy Hx of tubal ligation Family History Sister Anesthesia complication Cancer breast Daughter CAD (coronary artery disease) Hyperlipidemia Brother CAD (coronary artery disease) Grandfather Cancer skin Father Cancer skin Brother Cancer skin Mother Dementia Other Hypertension Lung disease Suicide Denies family history of Diabetes Clotting disorder Psychiatric illness Chronic kidney disease (CKD) Bleeding disorder Stroke Social History Smoking and tobacco status: former smoker Substance/Drug Use: never Vitals/I&O/Wt Last Vital Signs Temp 97.6 F 09/26/22 00:20 Pulse 107 H 09/26/22 00:47 Resp 16 09/26/22 00:39 BP 118/70 09/26/22 00:20 Pulse Ox 97 09/26/22 00:39 O2 Del Method Nasal Cannula 09/26/22 00:39 O2 Flow Rate 3 09/26/22 00:39 Physical Exam Narrative: General: Alert oriented x3, patient seen laying in bed on 3 L nasal cannula at this time. HEENT: Normocephalic, atraumatic, EOMI, no acute respiratory distress Cardio: Irregularly irregular, tachycardic normal S1-S2 Respiratory: Crackles to auscultation bilaterally GI: Abdomen soft, nontender, bowel sounds + Extremities: 2+ pitting edema bilateral lower extremities Data 09/26/22 00:47 09/26/22 00:47 A&P Assessment and plan (1) Atrial fibrillation with rapid ventricular response: (2) Leg edema: (3) Osteoporosis: (4) Primary hyperparathyroidism: (5) Malignant neoplasm of ascending colon: (6) Fatigue: (7) Chest pain: Plan #Atrial fibrillation with RVR #Acute on chronic congestive heart failure #History of breast cancer, colon cancer #COPD #Depression #History of skin cancer #Anemia ? Patient with pulmonary edema vascular congestion on x-ray. He definitely appears fluid overloaded has bilateral lower extremity edema as well. BNP 20,000. Lasix was held recently outpatient by her doctor. ? Start Lasix 40 IV daily ? Cardizem 10 IV given in ER. Continue on Cardizem drip at this time ? Check echocardiogram ? Continue aspirin, Imdur ? Keep potassium above 4 and magnesium above 2 ? Check electrolytes and replete as needed ? Check CBC CMP in a.m. ? Check troponin series as patient has been complaining of chest pain as well. Initial EKG did not show any acute ischemic changes. We will check serial EKGs ? Chest pain most likely secondary to demand ischemia in A-fib RVR palpitations. Consider stress testing during hospital stay. Consider cardiology consult ? DuoNeb every 6 hours as needed ? Check procalcitonin, sputum Gram stain culture ? I will hold off on starting therapeutic Lovenox or heparin at this time. Patient is anemic. Hemoglobin is 10.3. Check iron studies, ferritin, TIBC. Check FOBT. -Check stool lactoferrin, bacterial culture, ova parasite screen. SCDs, heparin SQ twice daily for DVT prophylaxis. Attestations Medical Necessity Statement*: Greater than 2 midnight stay for management of atrial fibrillation RVR, CHF exacerbation Coding Level of Care Code G0426 (50 min) TH Encounter Time (min): 45 Patient seen via Telehealth in the acute care setting (hospital or ED location) by agreement and consent of patient or patient front office representative. Telehealth technology used during the visit includes video and audio. This patient encounter is appropriate and reasonable under the circumstances given the patient?s particular presentation at this time. The patient has been advised of the potential risks and limitations of this mode of treatment (including but not limited to the absence of in-person examination at this time) and has agreed to be treated by an off-site physician for this visit. If deemed clinically necessary from this telehealth visit, or if condition or consent for telehealth visit changes, an in-person visit will be arranged. For this encounter, total time for the origination of telehealth care on this date is as shown. Diagnoses Atrial fibrillation with rapid ventricular response I48.91 Leg edema R60.0 Osteoporosis M81.0 Primary hyperparathyroidism E21.0 Malignant neoplasm of ascending colon C18.2 Fatigue R53.83 Chest pain R07.9
--- NOTE | 2022-09-26 03:38 | USCV_ITS ---
Marta Fraga Age: 82 Gender: F : 1940 Exam Date: 09/26/2022 10:32 Ordering Phys: Nancy Jurado MD Technologist: Js Wade Exam Location: [facility] [place] Indication: chf BP: 97 / 62 HR: 48 Rhythm: Sinus Technical Quality: Adequate MEASUREMENTS (Male / Female) Normal Values 2D ECHO LV Diastolic Diameter PLAX 4.9 cm 4.2 - 5.9 / 3.9 - 5.3 cm LV Systolic Diameter PLAX 3.4 cm IVS Diastolic Thickness 1.2 cm 0.6 - 1.0 / 0.6 - 0.9 cm IVS Systolic Thickness 1.9 cm LVPW Diastolic Thickness 1.2 cm 0.6 - 1.0 / 0.6 - 0.9 cm LVPW Systolic Thickness 1.2 cm LVOT Diameter 2.1 cm LV Ejection Fraction 2D Teich 44.9 % LV Ejection Fraction MOD 2C 59.5 % LV Ejection Fraction 2C AL 58.5 % LA Diameter 4.7 cm IVC Diameter 2.1 cm M-MODE RV Diastolic Diameter MM 3.3 cm Aortic Annulus Diameter 3.5 cm LA Ao Ratio MM 1.3 MV E Point Septal Separation 1.6 cm DOPPLER AV Peak Velocity 196.3 cm/s LVOT Peak Velocity 81.7 cm/s AV Area Cont Eq vti 1.6 cm squared AV Area Cont Eq pk 1.4 cm squared MV Area PHT 4.2 cm squared Mitral E to A Ratio 1.3 MV E' Velocity 72.0 cm/s Mitral E to MV E' Ratio 13.0 Mitral E to LV E' Lateral Ratio 11.8 Mitral E to LV E' Septal Ratio 14.4 TR Peak Velocity 276.2 cm/s TR Peak Gradient 30.5 mmHg TV Peak E Velocity 107.3 cm/s Right Atrial Pressure 3.0 mmHg Pulmonary Artery Systolic Pressu 33.5 mmHg RV Acceleration Time 0.1 s FINDINGS Left Ventricle Normal left ventricular size, mild to moderate systolic dysfunction and wall thickness, with no regional wall motion abnormalities. EF 40 %. Normal left ventricular wall thickness. Normal diastolic filling pattern. Right Ventricle The right ventricle is mildly dilated Right Atrium The right atrium is mildly enlrged Left Atrium The left atrium is moderately enlarged Mitral Valve Structurally normal mitral valve without significant stenosis or prolapse. There is erate to severe mitral regurgitation. Aortic Valve Structurally normal aortic valve without significant sclerosis or stenosis. There is no aortic regurgitation. Tricuspid Valve Structurally normal tricuspid valve without significant stenosis or regurgitation. Pulmonary artery systolic pressure is normal. Pulmonic Valve Structurally normal pulmonic valve without significant stenosis. There is no pulmonic regurgitation. Pericardium Normal pericardium without effusion. Aorta Normal ascending aorta dimension. IVC The inferior vena cava appears normal. CONCLUSIONS Normal left ventricular size, mild to moderate systolic dysfunction and wall thickness, with no regional wall motion abnormalities. EF 40 %. Normal left ventricular wall thickness. Normal diastolic filling pattern. Moderate to severe mitral regurgitation Stacy Quiroga MD (Electronically Signed) Final Date: 26 Sep 2022 15:52 S
[2022-09-26] MEDS: nicotine 21 mg Patch 1 PATCH TRANSDERMA (04:08)
[2022-09-26] MEDS: heparin 5,000 unit/mL INJ 1 mL 5000 UNIT SUBCUT ×2 (04:08→14:46)
[2022-09-26 04:52] LABS: Lactic Sepsis W/Reflex 0.8 mmol/L (0.5-2.2)
[2022-09-26 05:15] LABS: Procalcitonin 0.05 ng/mL (0-0.5); Thyroid Stimulating Hormone 1.74 uIU/mL (0.27-4.20)
[2022-09-26 05:26] LABS: Ferritin 67 ng/mL (15-150); Iron 46 ug/dL (37-145); Percent Saturation 22.5 % (20-50); Total Iron Binding Capacity 204 mcg/dl; Unsaturated Iron Binding 158 ug/dL (112-347)
--- NOTE | 2022-09-26 05:37 | ECG_ITS ---
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 Measurements Intervals [place] Rate: 89 P: 0 CO: 0 QRS: -39 QRSD: 105 T: 71 QT: 393 QTc: 480 Interpretive Statements ATRIAL FIBRILLATION WITH ABERRANT CONDUCTION OR VENTRICULAR PREMATURE COMPLEXES LEFT AXIS DEVIATION [QRS AXIS < -30] Compared to ECG 09/26/2022 03:46:39 Ventricular premature complex(es) now present Aberrant conduction of supraventricular beat(s) now present Electronically Signed On 09-26-2022 6:55:51 CDT by Adolfo Clemente M.D. [id number]
[2022-09-26 08:47] LABS: Troponin 5 6HR 32.68 ng/L (0-10); Troponin 5 6HR Delta -4.32 ng/L (0-12)
[2022-09-26] MEDS: budesonide 0.5 mg/2 mL Neb INHALATION ×2 (09:32→20:38)
[2022-09-26] MEDS: ipratropium-albuterol 3 mL Neb INHALATION ×4 (09:32→20:38)
--- NOTE | 2022-09-26 10:43 | ECG_ITS ---
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 Measurements Intervals [place] Rate: 89 P: -78 [place]: 158 QRS: 11 QRSD: 111 T: 43 QT: 405 QTc: 495 Interpretive Statements ECTOPIC ATRIAL RHYTHM WITH OCCASIONAL VENTRICULAR PREMATURE COMPLEXES WITH FREQUENT SUPRAVENTRICULAR PREMATURE COMPLEXES SEPTAL MYOCARDIAL INFARCTION , OF INDETERMINATE AGE [40+ ms Q WAVE IN V1/V2] Compared to ECG 09/26/2022 05:37:34 Ectopic atrial rhythm now present Myocardial infarct finding now present Atrial fibrillation no longer present Aberrant conduction of supraventricular beat(s) no longer present Left-axis deviation no longer present Electronically Signed On 09-27-2022 8:04:33 CDT by Adolfo Clemente M.D. [id number]
[2022-09-26] MEDS: ALPRAZolam 0.5 mg Tablet 0.25 MG PO (11:56)
--- NOTE | 2022-09-26 15:31 | PM.MISC ---
Miscellaneous Note Note: Overnight HPI reviewed, labs and vitals have been reviewed, 2D echo was done, result is awaited, heart rate is better controlled, patient still complaining of, shortness of breath. No other acute events.
[2022-09-26] MEDS: nicotine 4 mg lozenge MUCOUS MEM (16:11)
[2022-09-26] MEDS: acetaminophen 325 mg Tablet 650 MG PO (21:03)
[2022-09-27] VITALS (33 sets, daily range): BP systolic 80–140; BP diastolic 46–119; PULSE 81–151; RESP 14–30; TEMP 36.4–36.9; O2SAT 86–100
[2022-09-27] MEDS: heparin 5,000 unit/mL INJ 1 mL 5000 UNIT SUBCUT (03:00)
[2022-09-27] MEDS: albuterol 2.5 mg/3 mL Neb INHALATION (03:38)
[2022-09-27 04:32] LABS: Hematocrit 32.5 % (37.0-47.0); Hemoglobin 10.2 g/dL (11.5-15.3); Lymphocytes # 0.8 10^3/uL (0.8-4.8); Mean Corpuscular HGB Conc 31.4 g/dL (30.0-36.0); Mean Corpuscular Hemoglobin 29.2 pg (28.0-34.0); Mean Corpuscular Volume 93.1 fl (81-99); Mean Platelet Volume 11.6 fL (7.4-10.4); Monocytes # 0.3 10^3/uL (0.2-0.9); Monocytes % 6.2 %; Neutrophils # 3.67 10^3/uL (1.8-7.7); Neutrophils % 76.4 %; Nucleated Red Blood Cells % 0 %; Platelet Count 233 10^3/cmm (130-400); Red Blood Count 3.49 10^6/uL (4.1-5.3); Red Cell Distribution Width 17.6 % (12.1-15.1); White Blood Count 4.8 10^3/uL (4.0-10.0)
[2022-09-27 04:48] LABS: Anion Gap 11.2 (5-19); Blood Urea Nitrogen 15 mg/dL (8-23); Calcium 8.8 mg/dL (8.5-10.5); Carbon Dioxide 29 mmol/L (22-29); Chloride 100 mmol/L (98-107); Glucose 126 mg/dL (65-115); Magnesium 1.6 mg/dL (1.7-2.3); Osmolality Calculated 284 mOsm/kg (285-295); Potassium 4.2 mmol/L (3.5-5.1); Sodium 136 mmol/L (136-145)
[2022-09-27] MEDS: ipratropium-albuterol 3 mL Neb INHALATION ×4 (07:42→20:11)
[2022-09-27] MEDS: budesonide 0.5 mg/2 mL Neb INHALATION ×2 (07:42→20:11)
--- NOTE | 2022-09-27 09:33 | PM.PN ---
Subjective Subjective: Patient was seen and examined this morning, still has shortness of breath, continue to be in A-fib. Medications: Medication Review Details: Generic Name Dose Route Start Last Admin Trade Name Vivek PRN Reason Stop Dose Admin Acetaminophen 650 mg 09/26/22 03:39 09/26/22 21:03 Acetaminophen 32 5 Mg Tablet PO 650 mg Q6H PRN Administration Mild/Mod Pain Or Temp >/= 101 Albuterol Sulfate 2.5 mg 09/26/22 12:54 09/27/22 03:38 Albuterol 2.5 Mg /3 Ml Neb INHALATION 2.5 mg Q4H.RESPIRATORY P RN Administration sob or wheezing Albuterol/Ipratrop ium 3 ml 09/26/22 08:00 09/27/22 11:36 Ipratropium-Albu terol 3 Ml Neb INHALATION 3 ml QID.RESPIRATORY S CH Administration Alprazolam 0.25 mg 09/26/22 11:29 09/27/22 10:04 Alprazolam 0.5 M g Tablet PO 0.25 mg DAILY PRN Administration anxiety Aspirin 81 mg 09/27/22 09:00 09/27/22 10:03 Aspirin 81 Mg Ec Tablet PO 81 mg DAILY BABITA Administration Budesonide 0.5 mg 09/26/22 08:00 09/27/22 07:42 Budesonide 0.5 M g/2 Ml Neb INHALATION 0.5 mg BID.RESPIRATORY S CH Administration Dexamethasone 10 mg 09/26/22 15:24 09/27/22 10:04 Dexamethasone 10 Mg/Ml Inj IVP 10 mg DAILY BABITA Administration Diltiazem HCl 60 mg 09/27/22 09:00 09/27/22 10:03 Diltiazem 60 Mg Tablet PO 60 mg DAILY BABITA Administration Furosemide 40 mg 09/26/22 14:00 09/26/22 15:26 Furosemide 10 Mg /Ml Sdv 4ml IVP Not Given Q24H BABITA Heparin Sodium (Po rcine) 5,000 unit 09/26/22 03:45 09/27/22 03:00 Heparin 5,000 Un it/Ml Inj 1 Ml SUBCUT 5,000 unit Q12H BABITA Administration Nicotine 1 patch 09/26/22 03:34 09/27/22 10:03 Nicotine 21 Mg P atch TRANSDERMA 1 patch DAILY BABITA Administration Nicotine Polacrile x 4 mg 09/26/22 15:24 09/26/22 16:11 Nicotine 4 Mg Lo zenge MUCOUS MEM 4 mg Q2H PRN Administration NICOTINE CRAVINGS Vitals/I&O/Wt Last Vital Signs Temp 98.5 F 09/27/22 08:00 Pulse 133 H 09/27/22 08:00 Resp 22 H 09/27/22 08:00 BP 113/76 09/27/22 08:00 Pulse Ox 94 09/27/22 08:00 O2 Del Method Nasal Cannula 09/27/22 08:00 O2 Flow Rate 2 09/27/22 08:00 09/26/22 09/27/22 09/27/22 22:59 06:59 14:59 Intake Total 480 / 1316 240 / 1556 Output Total 100 / 350 600 / 950 Balance 380 / 966 -360 / 606 Weight last 48 hrs Weight 62.233 kg Physical Exam Const: COMMON NORMALS: patient oriented x3 HENMT: COMMON NORMALS: normocephalic and atraumatic HEAD & SCALP: normocephalic and atraumatic Resp: COMMON NORMALS: clear to auscultation bilaterally AUSCULTATION: clear to auscultation bilaterally OTHER: Diminished air entry bilaterally Cardio: OTHER: Irregularly irregular rhythm S1-S2 variable intensity. GI: COMMON NORMALS: Normal to inspection, nondistended, normoactive bowel sounds present, Soft to palpation, non-tender, No hepatosplenomegaly present and no masses AUSCULTATION: Yes normoactive bowel sounds PALPATION: Yes Soft to palpation and Yes No hepatosplenomegaly present RECTAL EXAM: deferred Extremity: NARRATIVE EXTREMITY EXAM: Bilateral lower extremity 2+ pitting Neuro: COMMON NORMALS: patient oriented x3 Data 09/27/22 03:28 09/27/22 03:28 Micro: Microbiology 09/26/22 11:54 Stool Lactoferrin - Final Stool 09/26/22 11:54 Occult Blood (FIT) - Final Stool A&P Assessment and plan (1) Atrial fibrillation with rapid ventricular response: (2) Leg edema: (3) Osteoporosis: (4) Primary hyperparathyroidism: (5) Malignant neoplasm of ascending colon: (6) Fatigue: (7) Chest pain: Plan 82 year old female with PMH of Ca Breast breast ,colon cancer, COPD, 2 L home oxygen ,depression, primary hyperparathyroidism, hypercalcemia, skin cancer, anxiety was admitted for the management of worsening shortness of breath, worsening bilateral lower extremity swelling, pressure-like chest pain substernal, along with palpitation.Currently she is being managed for. Assessment: Decompensated heart failure with reduced ejection fraction: 2D echo done during the hospital stay: Showed reduced EF of 40%, no prior echo to compare ejection fraction,Normal left ventricular size,?Normal left ventricular wall thickness. Normal diastolic filling pattern.?Moderate to severe mitral regurgitation. X-ray chest: Pulmonary vascular congestion changes with interstitial edema. Elevated proBNP Currently patient is on Lasix 40 IV daily. Monitor intake output charting Daily weight Monitor electrolytes keep potassium greater than 4 magnesium greater than 2 In view of newly diagnosed heart failure with reduced ejection fraction, and given the patient extensive smoking history, as well as, complaint of chest pain.It will be prudent to do a stress test in the morning. Continue telemetry monitoring Newly diagnosed atrial fibrillation presented with RVR: For now continue patient on Cardizem 60 p.o. daily, blood pressure is on softer side if she fails to tolerate Cardizem We will have to start start amiodarone. Started on therapeutic anticoagulation with Lovenox H&H will be monitored closely, as FOBT is positive. Continue telemetry monitoring 2D echo report as noted above End-stage COPD Gold class D: Continue dexamethasone 10 mg IV daily DuoNebs Budesonide inhaler Supplemental oxygen as needed Recent history of diarrhea; Check stool studies CODE STATUS full code DVT prophylaxis not needed on therapeutic anticoagulation with Lovenox Attestations Medical Necessity Statement*: Patient is in hospital for the management of heart failure.Anticipated length of stay greater than 2 midnights Coding Level of Care Code Acute Code for Chg Fwd Diagnoses Atrial fibrillation with rapid ventricular response I48.91 Leg edema R60.0 Osteoporosis M81.0 Primary hyperparathyroidism E21.0 Malignant neoplasm of ascending colon C18.2 Fatigue R53.83 Chest pain R07.9
[2022-09-27] MEDS: nicotine 21 mg Patch 1 PATCH TRANSDERMA (10:03)
[2022-09-27] MEDS: dilTIAZem 60 mg Tablet PO (10:03)
[2022-09-27] MEDS: aspirin 81 mg EC Tablet PO (10:03)
[2022-09-27] MEDS: ALPRAZolam 0.5 mg Tablet 0.25 MG PO (10:04)
[2022-09-27] MEDS: magnesium sulfate premix 2 GM/50 ML PIGGYBACK IV (10:04)
[2022-09-27] MEDS: dexamethasone 10 mg/mL INJ IVP (10:04)
[2022-09-27] MEDS: enoxaparin 60 mg/0.6 mL Syringe SUBCUT (14:41)
[2022-09-27] MEDS: FUROsemide 10 mg/mL SDV 4mL 40 MG IVP (15:43)
[2022-09-27] MEDS: nicotine 4 mg lozenge MUCOUS MEM (17:28)
[2022-09-27] MEDS: acetaminophen 325 mg Tablet 650 MG PO (20:59)
[2022-09-28] VITALS (28 sets, daily range): BP systolic 85–134; BP diastolic 46–90; PULSE 75–114; RESP 14–27; TEMP 36.3–36.8; O2SAT 89–99
[2022-09-28] MEDS: enoxaparin 60 mg/0.6 mL Syringe SUBCUT ×2 (02:10→13:59)
[2022-09-28] MEDS: albuterol 2.5 mg/3 mL Neb INHALATION (02:24)
[2022-09-28 03:46] LABS: Hematocrit 32.5 % (37.0-47.0); Lymphocytes # 0.8 10^3/uL (0.8-4.8); Lymphocytes % 12.7 %; Mean Corpuscular HGB Conc 30.8 g/dL (30.0-36.0); Mean Corpuscular Hemoglobin 28.9 pg (28.0-34.0); Mean Corpuscular Volume 93.9 fl (81-99); Monocytes # 0.6 10^3/uL (0.2-0.9); Monocytes % 9.5 %; Neutrophils # 5.13 10^3/uL (1.8-7.7); Neutrophils % 77.2 %; Nucleated Red Blood Cells % 0 %; Platelet Count 244 10^3/cmm (130-400); Red Blood Count 3.46 10^6/uL (4.1-5.3); Red Cell Distribution Width 17.9 % (12.1-15.1); White Blood Count 6.6 10^3/uL (4.0-10.0)
[2022-09-28 04:11] LABS: Blood Urea Nitrogen 20 mg/dL (8-23); Calcium 8.6 mg/dL (8.5-10.5); Carbon Dioxide 30 mmol/L (22-29); Chloride 99 mmol/L (98-107); Glucose 116 mg/dL (65-115); Osmolality Calculated 286 mOsm/kg (285-295); Sodium 136 mmol/L (136-145)
[2022-09-28] MEDS: ALPRAZolam 0.5 mg Tablet 0.25 MG PO (04:11)
[2022-09-28] MEDS: budesonide 0.5 mg/2 mL Neb INHALATION ×2 (07:35→20:19)
[2022-09-28] MEDS: ipratropium-albuterol 3 mL Neb INHALATION ×2 (07:35→12:08)
[2022-09-28] MEDS: nicotine 4 mg lozenge MUCOUS MEM (08:51)
[2022-09-28] MEDS: dilTIAZem 60 mg Tablet PO (08:51)
[2022-09-28] MEDS: nicotine 21 mg Patch 1 PATCH TRANSDERMA (08:51)
[2022-09-28] MEDS: aspirin 81 mg EC Tablet PO (08:51)
[2022-09-28] MEDS: dexamethasone 10 mg/mL INJ IVP (08:52)
[2022-09-28 13:06] LABS: Vitamin B12 612 pg/mL (232-1245)
[2022-09-28] MEDS: ipratropium 0.5 mg/2.5 mL Neb INHALATION ×2 (15:13→20:19)
[2022-09-28] MEDS: levalbuterol 0.63 mg/3 mL Neb INHALATION ×2 (15:14→20:19)
--- NOTE | 2022-09-28 17:59 | P.PN_ITS ---
Subjective Subjective: Hospital course, labs appreciated. Patient in comfortably in bed today. Heart rate still running more than 110s. Looking visibly out of breath. On 2 L of nasal cannula saturating more than 90%. Denies any chest pain. His concerned that she is not able to go for stress test today. We did discuss that unfortunately stress test is not available given holiday today. Patient verbalizes understanding. Vitals/I&O/Wt Last Vital Signs Temp 98.0 F 09/28/22 16:00 Pulse 108 H 09/28/22 16:00 Resp 27 H 09/28/22 16:00 BP 134/80 09/28/22 16:00 Pulse Ox 94 09/28/22 16:00 O2 Del Method Nasal Cannula 09/28/22 16:00 O2 Flow Rate 3 09/28/22 15:17 09/28/22 09/28/22 09/28/22 06:59 14:59 22:59 Intake Total 200 / 200 Output Total 500 / 2630 200 / 200 Balance -500 / -1758 0 / 0 Physical Exam 2 Narrative: General: No acute distress, AO x3, NC oxygen supplementation, using accessory muscles HEENT: PERRLA, pupils bilaterally equal and reactive Chest: Bilateral bronchial breath sounds all over lung ko, occasional rhonchi all over lung ko, fine crackles present mid lungs bilaterally CVS: S1-S2 irregularly irregular, pansystolic murmur at apex, tachycardia, no gallops, no rubs Abdomen: Soft, nontender, no organomegaly, bowel sounds present, morbidly obese Neuro: No focal deficits, no facial deformity, AO x3, power 5/5 in all limbs Data 09/28/22 03:28 09/28/22 03:28 A&P Assessment and plan (1) Hypoxia: (2) Congestive heart failure: (3) COPD (chronic obstructive pulmonary disease): (4) Atrial fibrillation with rapid ventricular response: (5) Leg edema: (6) Osteoporosis: (7) Primary hyperparathyroidism: (8) Malignant neoplasm of ascending colon: (9) Fatigue: (10) Chest pain: (11) Positive occult stool blood test: Plan 82 year old female with PMH of Ca Breast breast ,colon cancer, COPD, 2 L home oxygen ,depression, primary hyperparathyroidism, hypercalcemia, skin cancer, anxiety was admitted for the management of worsening shortness of breath, worsening bilateral lower extremity swelling, pressure-like chest pain substernal, along with palpitation.Currently she is being managed for. Assessment: Hypoxia: Most likely in setting of decompensated congestive heart failure from atrial fibrillation with rapid ventricular response and COPD exacerbation. Keep saturation over 90%. Switch to ipratropium, Xopenex every 4 hourly, budesonide twice daily. Decompensated heart failure with reduced ejection fraction: 2D echo done during the hospital stay: Showed reduced EF of 40%, no prior echo to compare ejection fraction,Normal left ventricular size,?Normal left ventricular wall thickness. Normal diastolic filling pattern.?Moderate to severe mitral regurgitation. Strict input of charting, daily weights. Increase Lasix to 40 mg IV twice daily. Fluid restriction to 1200 cc. Newly diagnosed atrial fibrillation presented with RVR: Blood pressures on the softer side. Switch to amiodarone drip after 150 bolus. Discussed in detail with patient regarding need for anticoagulation for stroke prevention. Discussed that there is a concern for GI bleed. Patient verbalized understanding and for now is okay with starting anticoagulation. Continue Lovenox 60 mg every 12 hourly. Will transition to Eliquis 5 mg twice daily on discharge. We will monitor hemoglobin daily. End-stage COPD Gold class D: Continue dexamethasone 10 mg IV daily Nebulization as above. Recent history of diarrhea: Check stool studies pending. Stool for occult blood positive: Monitor hemoglobin. No active melena. Start on IV Protonix 40 mg twice daily, Carafate before meals and at bedtime. Hypertension: Goal blood pressure less than 140/90 mmHg. Blood pressure soft currently. At home takes Imdur 30 mg daily, Cardizem 60 mg oral daily. Medication change as above. CODE STATUS full code Cardiac diet. DVT prophylaxis not needed on therapeutic anticoagulation with Lovenox Protonix for PUD prophylaxis. Attestations Medical Necessity Statement*: Requires further hospitalization for management of hypoxia due to early congestive heart failure, new atrial fibrillation with RVR while ACS is ruled out Diagnoses Hypoxia R09.02 Congestive heart failure I50.9 COPD (chronic obstructive pulmonary disease) J44.9 Atrial fibrillation with rapid ventricular response I48.91 Leg edema R60.0 Osteoporosis M81.0 Primary hyperparathyroidism E21.0 Malignant neoplasm of ascending colon C18.2 Fatigue R53.83 Chest pain R07.9 Positive occult stool blood test R19.5
[2022-09-28] MEDS: amiodarone 50 mg/mL SDV 3 mL 150 MG IVP (18:25)
[2022-09-28] MEDS: FUROsemide 10 mg/mL SDV 4mL 40 MG IVP (18:25)
[2022-09-28] MEDS: ALPRAZolam 0.5 mg Tablet PO (18:25)
[2022-09-28] MEDS: sucralfate 1 gm Tablet PO (20:19)
[2022-09-29] VITALS (9 sets, daily range): BP systolic 103–108; BP diastolic 71–85; PULSE 74–96; RESP 16–21; TEMP 36.4–36.7; O2SAT 91–99
[2022-09-29] MEDS: levalbuterol 0.63 mg/3 mL Neb INHALATION ×2 (02:07→08:34)
[2022-09-29] MEDS: ipratropium 0.5 mg/2.5 mL Neb INHALATION ×2 (02:07→08:34)
[2022-09-29] MEDS: enoxaparin 60 mg/0.6 mL Syringe SUBCUT (02:12)
[2022-09-29] MEDS: FUROsemide 10 mg/mL SDV 4mL 40 MG IVP ×2 (04:46→08:34)
--- NOTE | 2022-09-29 06:03 | PC.NURSE ---
Night Hospitalist notified that patient cannot complete nuclear med stress test. Patient states she cannot lay flat as she cannot breathe in a supine position. Nuc med notified.
[2022-09-29] MEDS: sucralfate 1 gm Tablet PO ×2 (06:15→11:53)
[2022-09-29] MEDS: ALPRAZolam 0.5 mg Tablet PO (06:20)
[2022-09-29 06:28] LABS: Hematocrit 34.2 % (37.0-47.0); Hemoglobin 10.6 g/dL (11.5-15.3); Lymphocytes # 0.7 10^3/uL (0.8-4.8); Lymphocytes % 9.2 %; Mean Corpuscular Hemoglobin 29.5 pg (28.0-34.0); Mean Corpuscular Volume 95.3 fl (81-99); Mean Platelet Volume 12.1 fL (7.4-10.4); Monocytes # 0.9 10^3/uL (0.2-0.9); Monocytes % 11.1 %; Neutrophils # 6.06 10^3/uL (1.8-7.7); Neutrophils % 79.4 %; Nucleated Red Blood Cells % 0 %; Platelet Count 275 10^3/cmm (130-400); Red Blood Count 3.59 10^6/uL (4.1-5.3); Red Cell Distribution Width 18.1 % (12.1-15.1); White Blood Count 7.6 10^3/uL (4.0-10.0)
[2022-09-29 06:58] LABS: Alanine Aminotransferase 21 U/L (0-33); Albumin Level 3.2 g/dL (3.5-5.2); Alkaline Phosphatase 99 U/L (35-105); Anion Gap 12.5 (5-19); Aspartate Amino Transferase 24 U/L (0-32); Blood Urea Nitrogen 24 mg/dL (8-23); Calcium 9.3 mg/dL (8.5-10.5); Carbon Dioxide 29 mmol/L (22-29); Chloride 95 mmol/L (98-107); Chol HDL Ratio 2.13 mg/dL (0.0-4.40); Cholesterol 151 mg/dL (0-200); Estmated Average Glucose 97; Globulin 3.1 g/dL (1.3-4.6); Glucose 114 mg/dL (65-115); HDL Cholesterol 71 mg/dL (60-100); LDL Cholesterol Calculated 62 mg/dL (50-129); Osmolality Calculated 279 mOsm/kg (285-295); Potassium 4.5 mmol/L (3.5-5.1); Sodium 132 mmol/L (136-145); Total Bilirubin 0.3 mg/dL (0.15-1.2); Total Protein 6.3 g/dL (6.6-8.7); Triglycerides 88 mg/dL (0-150); VLDL Cholestrol Calculation 18 mg/dL (0-30)
[2022-09-29 07:08] LABS: Folate Level 3.5 ng/mL (4.8-37.3)
[2022-09-29] MEDS: nicotine 21 mg Patch 1 PATCH TRANSDERMA (08:34)
[2022-09-29] MEDS: pantoprazole DR 40 mg Tablet PO (08:34)
[2022-09-29] MEDS: budesonide 0.5 mg/2 mL Neb INHALATION (08:34)
[2022-09-29] MEDS: aspirin 81 mg EC Tablet PO (08:34)
[2022-09-29] MEDS: dexamethasone 10 mg/mL INJ IVP (08:35)
--- NOTE | 2022-09-29 09:14 | PC.CHAP ---
Pastoral Care Encounter/Spiritual Assessment Type of Contact [] Declined flooring professional visit [] Patient/Family/Request visit [] Outpatient visit [] Follow-up visit [] Physician referral [] Code/Alert [x] Routine visit [] Staff referral [] Actively dying [] Patient sleeping [] Family support [] [] Out of room [] Palliative care [] [] Receiving care in room [] Pre-surgical visit [] Trauma [] Long length of stay [] ICU visit [] Other: Relational/Emotional Strength [x] Patient feels connected with others/family/visitors/staff [] Distress [] Loneliness/isolation [] Abandonment Spirituality of Patient [x] Person of Dian [] Attends Episcopal of their Dian [x] Believes in Prayer [] Reads Bible or Caodaism materials [] There are Spiritual issues to be addressed Kindergarten Paraprofessional Interventions [x] Prayer [x] Active listening [] Non-anxious presence [x] Spiritual/emotional support [] Crisis/trauma care [] Spiritual counseling [] Bereavement support [] Provided bereavement packet [] Provided Bible/devotional materials [] Provided toy/stuffed animal, coloring book to patient or family member [] Provided Communion [] Anointing/[place] [] Salvation [x] Completed spiritual assessment [] Other: Impact on Illness or Injury [] Angry [] Fearful [] Anxious [] Often cries [] Exhaustion [] Unable to work [] Unable to attend buddhism [] Unable to walk/stand [] Unable to read [] Unable to drive [] Unable to eat/drink [] Unable to sleep [] Unable to be with family [] Patient intubated [] Other: Summary Time spent with patient 5 min
--- NOTE | 2022-09-29 11:50 | P.DS_ITS ---
Discharge Providers Date of Admission: 09/27/22 13:49 Date of Discharge: September 29, 2022 Attending Provider at Admission: Nancy Jurado MD Attending Provider at Discharge: Fabio Ardon MD Primary Care Provider: Louisa Diaz Diagnoses at Discharge Discharge Diagnosis (1) Hypoxia: Status: Acute (2) Congestive heart failure: Status: Acute Qualifiers: Heart failure type: combined systolic and diastolic (3) COPD (chronic obstructive pulmonary disease): Status: Acute (4) Atrial fibrillation with rapid ventricular response: Status: Acute (5) Leg edema: Status: Acute (6) Osteoporosis: Status: Acute (7) Primary hyperparathyroidism: Status: Acute (8) Malignant neoplasm of ascending colon: Status: Acute (9) Fatigue: Status: Acute (10) Chest pain: Status: Acute (11) Positive occult stool blood test: Status: Acute Reason for Visit Reason for Visit: SOB Brief History: History as per HPI: Marta Fraga is a 82 year old female with history of breast cancer, colon can cer, COPD, depression, primary hyperparathyroidism, hypercalcemia, skin cancer, anxiety who presented to the hospital today with complaint of increasing shortness of breath.? She states that it is difficult to breathe.? She is on 2 L of oxygen at baseline at home.? She also endorses chest pain that feels like a pressure in the middle of her chest along with palpitations.? She says she has been having some diarrhea for the last 6 weeks.? Prior to that she was on antibiotics for UTI.? She states that she has had constipation for the last 1- 1/2 years however the diarrhea started 6 weeks ago and she has been managing at home with Imodium and medications [id number].? She does have a history of colon resection due to colon cancer in 1998.? Patient does not have chronic diarrhea.? She says she feels dehydrated at times.? He says the chest pain she has is in a bandlike fashion in epigastric region which tightens and then eases up.? She says since she came to the ER and was given Lasix she is starting to feel better already.? She denies a history of atrial fibrillation however in ER on EKG she was found to be in A-fib with RVR.? She was given 10 of Cardizem IV and Lasix 40 IV x1.? Denies fever, nausea, vomiting, diarrhea, constipation.? Patient does have a Port-A-Cath in place.? Labs show BNP 20,000, hemoglobin 10.3, WBC 6.9, platelet 219, sodium 136, potassium 3.7, creatinine 0.7.? Baseline troponin 37, 2-hour troponin 37.37 delta of 0.37.? Chest x-ray shows pulmonary vascular congestion with interstitial edema suspected.? Patient also states that recently her Lasix that she was taking as an outpatient was stopped by her doctor.? She is on Lasix 20 mg daily.? She says her blood pressure was starting to be low and that is why Lasix was held as an outpatient. Hospital Course Hospital Course Patient was admitted to the hospital further evaluation and management. On admission she was found to be in atrial fibrillation with rapid ventricular response and congestive heart failure. She was started on IV Cardizem drip which was later transitioned to oral Cardizem. Patient's heart rate continued to be in rapid ventricular response of blood pressures were trending down hence she was transitioned over to amiodarone drip after which both her heart rate and blood pressures were under control. She was started on aggressive IV diuresis to which she responded well. During hospitalization patient did have episodes of anxiety and she wanted to continue smoking. We did drug and alcohol counsellor in detail for patient to stop smoking as much as possible. She was also started on full dose anticoagulation after discussing with about merits and demerits. Patient was found to be positive for stool occult blood though her hemoglobin remained stable. She has been transitioned over to Eliquis 2.5 mg twice daily as per the body weight and age. She is also being discharged on Protonix twice daily for next 2 weeks followed by once daily and Carafate for next 2 weeks. Admitting physician was concern for ACS hence cardiac stress test was ordered but could not be done as medication could not be given through port and patient declined IV access placement. During hospitalization her troponin cycle remained unremarkable. Echocardiogram was done which showed an EF of 40% with no regional wall motion abnormality and moderate to severe MR. She has been discharged in hemodynamically stable condition back home on oral amiodarone 200 mg twice daily for next 1 week followed by 200 mg daily. She is restarted on Eliquis 5 mg twice daily for anticoagulation. Oral Cardizem has been stopped. Dose of Lasix has been changed to 40 mg twice daily along with potassium 10 mg oral daily. She is to continue taking her Imdur as before. She is to follow-up with a primary care provider within next 1 week for repeat CBC and CMP. Discharge plan discussed in detail with the patient and she verbalized understanding. Physical Exam Narrative: General: No acute distress, AO x3, NC oxygen supplementation, using accessory muscles HEENT: PERRLA, pupils bilaterally equal and reactive Chest: Bilateral bronchial breath sounds all over lung ko, occasional rhonchi all over lung ko, fine crackles present mid lungs bilaterally CVS: S1-S2 irregularly irregular, pansystolic murmur at apex, tachycardia, no gallops, no rubs Abdomen: Soft, nontender, no organomegaly, bowel sounds present, morbidly obese Neuro: No focal deficits, no facial deformity, AO x3, power 5/5 in all limbs Discharge Data Studies Completed and Pending Completed Studies During Hospitalization Category Date Time Status XR chest 1V portable [id number] Stat Exams 09/26/22 00:27 Completed US echo complete [CV. echo complete* [id number]] Routine Ultrasound 09/26/22 03:38 Completed Pending at discharge Category Date Time Status Cardiac Stress Test MIBI [Sestamibi Stress Test Request Exams 09/27/22 09:16 Ordered ] Routine Miscellaneous Test Routine Lab 09/26/22 12:54 Received OVA and Parasites, Conc and PE Routine Lab 09/26/22 11:54 Received Radiology Impressions Chest X-Ray 09/26/22 00:27 IMPRESSION: Pulmonary vascular congestion changes with interstitial edema suspected. Echocardiogram CONCLUSIONS Normal left ventricular size, mild to moderate systolic?dysfunction and wall thickness, with no regional wall motion?abnormalities.? EF 40 %. Normal left ventricular wall thickness.?Normal diastolic filling pattern.? Moderate to severe mitral regurgitation ?Stacy Quiroga MD ?(Electronically Signed) ?Final Date:? ? ? 26 Sep 2022 1 Laboratory Results WBC 7.6 10^3/uL (4.0-10.0) 09/29/22 04:35 RBC 3.59 10^6/uL (4.1-5.3) L 09/29/22 04:35 Hgb 10.6 g/dL (11.5-15.3) L 09/29/22 04:35 Hct 34.2 % (37.0-47.0) L 09/29/22 04:35 MCV 95.3 fl (81-99) 09/29/22 04:35 MCH 29.5 pg (28.0-34.0) 09/29/22 04:35 MCHC 31.0 g/dL (30.0-36.0) 09/29/22 04:35 RDW 18.1 % (12.1-15.1) H 09/29/22 04:35 Plt Count 275 10^3/cmm (130-400) 09/29/22 04:35 MPV 12.1 fL (7.4-10.4) H 09/29/22 04:35 Neut % (Auto) 79.4 % 09/29/22 04:35 Lymph % (Auto) 9.2 % 09/29/22 04:35 Keith % (Auto) 11.1 % 09/29/22 04:35 Eos % (Auto) 0.0 % 09/29/22 04:35 Baso % (Auto) 0.0 % 09/29/22 04:35 Neut # (Auto) 6.06 10^3/uL (1.8-7.7) 09/29/22 04:35 Lymph # (Auto) 0.7 10^3/uL (0.8-4.8) L 09/29/22 04:35 Keith # (Auto) 0.9 10^3/uL (0.2-0.9) 09/29/22 04:35 Eos # (Auto) 0.0 10^3/uL (0.0-0.8) 09/29/22 04:35 Baso # (Auto) 0.0 10^3/uL (0.0-0.1) 09/29/22 04:35 Nucleated RBC % (auto) 0 % 09/29/22 04:35 Nucleated RBCs # 0.0 /100WBC 09/29/22 04:35 PT 13.30 SECONDS (12.1-14.9) 09/26/22 00:47 INR 0.99 (0.8-1.2) 09/26/22 00:47 Sodium 132 mmol/L (136-145) L 09/29/22 04:35 Potassium 4.5 mmol/L (3.5-5.1) 09/29/22 04:35 Chloride 95 mmol/L (98-107) L 09/29/22 04:35 Carbon Dioxide 29 mmol/L (22-29) 09/29/22 04:35 Anion Gap 12.5 (5-19) 09/29/22 04:35 BUN 24 mg/dL (8-23) H 09/29/22 04:35 Creatinine 0.8 mg/dL (0.5-0.9) 09/29/22 04:35 GFR Calculation Not Reportable 09/29/22 04:35 Glucose 114 mg/dL (65-115) 09/29/22 04:35 Estimat Average Glucose 97 09/29/22 04:35 Hemoglobin A1c 5.0 % (4.0-6.0) 09/29/22 04:35 Calculated Osmolality 279 mOsm/kg (285-295) L 09/29/22 04:35 Lactic Acid 0.8 mmol/L (0.5-2.2) 09/26/22 04:14 Calcium 9.3 mg/dL (8.5-10.5) 09/29/22 04:35 Magnesium 1.6 mg/dL (1.7-2.3) L 09/27/22 03:28 Iron 46 ug/dL (37-145) 09/26/22 04:14 Iron Cancelled 09/26/22 04:14 TIBC 204 mcg/dl 09/26/22 04:14 % Saturation 22.5 % (20-50) 09/26/22 04:14 Unsat Iron Binding 158 ug/dL (112-347) 09/26/22 04:14 Ferritin 67 ng/mL (15-150) 09/26/22 04:14 Total Bilirubin 0.3 mg/dL (0.15-1.2) 09/29/22 04:35 AST 24 U/L (0-32) 09/29/22 04:35 ALT 21 U/L (0-33) 09/29/22 04:35 Alkaline Phosphatase 99 U/L (35-105) 09/29/22 04:35 Troponin T Baseline 37 ng/L (0-10) H 09/26/22 00:47 Troponin T 120 Minute 37.37 ng/L (0-10) H 09/26/22 02:05 Delta Troponin T 0.37 ABS# (0-10) 09/26/22 02:05 Troponin T Hi Sens 6Hr 32.68 ng/L (0-10) H 09/26/22 06:37 Troponin T Hi Sens 6Hr Delta -4.32 ng/L (0-12) L 09/26/22 06:37 NT-Pro-B Natriuret Pep 05506 pg/mL (0-450) H 09/29/22 04:35 Total Protein 6.3 g/dL (6.6-8.7) L 09/29/22 04:35 Albumin 3.2 g/dL (3.5-5.2) L 09/29/22 04:35 Globulin 3.1 g/dL (1.3-4.6) 09/29/22 04:35 Triglycerides 88 mg/dL (0-150) 09/29/22 04:35 Cholesterol 151 mg/dL (0-200) 09/29/22 04:35 LDL Cholesterol, Calc 62 mg/dL (50-129) 09/29/22 04:35 Total VLDL Cholesterol 18 mg/dL (0-30) 09/29/22 04:35 HDL Cholesterol 71 mg/dL (60-100) 09/29/22 04:35 Cholesterol/HDL Ratio 2.13 mg/dL (0.0-4.40) 09/29/22 04:35 Vitamin B12 612 pg/mL (232-1245) 09/28/22 03:28 Folate 3.5 ng/mL (4.8-37.3) L 09/29/22 04:35 Procalcitonin 0.05 ng/mL (0-0.5) 09/26/22 04:14 TSH 1.74 uIU/mL (0.27-4.20) 09/26/22 04:14 Vitals Last Vital Signs Temp 98.0 F 09/29/22 07:58 Pulse 93 09/29/22 11:21 Resp 21 H 09/29/22 11:21 BP 103/85 09/29/22 07:58 Pulse Ox 92 09/29/22 11:21 O2 Del Method Nasal Cannula 09/29/22 11:21 O2 Flow Rate 3 09/29/22 08:38 Discharge Plan Discharge Patient Disposition: Home Health Service Condition: Stable Prescriptions: New pantoprazole 40 mg Tablet,Delayed Release (Dr/Ec) 40 mg PO DAILY Qty: 45 0RF Rx Instructions: Twice daily for next 2 weeks followed by daily sucralfate 1 gram Tablet 1 g PO AC&BEDTIME 14 Days Qty: 56 0RF amiodarone 200 mg tablet 200 mg PO DAILY 30 Days Qty: 40 0RF Rx Instructions: twice daily for next 1 week followed by once daily fluticasone furoate-vilanterol [Breo Ellipta] 200-25 mcg/dose blister with device 1 inh inhalation DAILY Qty: 60 0RF furosemide [Lasix] 40 mg tablet 40 mg PO BID Qty: 60 0RF Eliquis 2.5 mg tablet 2.5 mg PO BID Qty: 60 0RF Continued (DME) Fast Form Cock Up Splint See Rx Instructions .ROUTE .MEDSUPPLY Qty: 1 0RF Rx Instructions: As directed meclizine 25 mg tablet 25 mg PO DAILY PRN (Reason: Dizziness) hydrocodone-acetaminophen 5-325 mg tablet 1 tab PO Q6H PRN (Reason: pain) 7 Days Qty: 30 0RF diazepam [Valium] 5 mg tablet 5 mg PO ONCE PRN (Reason: anxiety) Qty: 1 0RF Rx Instructions: take [address] scan alprazolam [Xanax] 0.25 mg tablet 0.25 mg PO DAILY PRN (Reason: anxiety) Qty: 30 3RF acetaminophen [Tylenol] 325 mg Tablet 325 mg PO Q4-5H PRN (Reason: Pain) Hold Instructions: Resume on 07/31/20. Do not take additional acetaminophen with the pain medication that was prescribed today. isosorbide mononitrate 30 mg tablet extended release 24 hr 30 mg PO DAILY Qty: 30 0RF aspirin 81 mg tablet,delayed release (DR/EC) 81 mg PO DAILY Qty: 30 0RF albuterol sulfate 90 mcg/actuation Hfa Aerosol Inhaler 1 puff INHALATION QID PRN (Reason: Shortness Of Breath Or Wheezing) Changed potassium chloride 10 mEq capsule, extended release 10 meq PO DAILY Qty: 30 0RF Discontinued furosemide 20 mg tablet 20 mg PO DAILY diltiazem HCl 60 mg capsule,extended release 12 hr 60 mg PO DAILY Discharge Orders: Discharge Order (Routine); Ordered 09/29/22 Ordered By: Fabio Ardon Referrals: [facility] [Outside] Louisa Diaz [Primary Care Provider] - 1 week Discharge Diet: Cardiac Discharge Activity: Resume usual activity and Increase activity as tolerated Patient Instructions: Sucralfate (By mouth) (Carafate), Amiodarone (By mouth) (Cordarone, Pacerone), Fluticasone (By breathing) (Arnuity Ellipta, Flovent Diskus,..., Pantoprazole (By mouth) (Protonix), Hypoxia (GEN), CHF Stoplight, COPD Stoplight, Opioid Safety Activity Restrictions/Additional Instructions: Medication changes are as follows. Do not take Cardizem anymore. Dose of Lasix has been increased to 40 mg morning and evening. Take potassium 10 mEq oral daily. Take amiodarone 200 mg twice daily for next 1 week followed by 200 mg daily. Take Protonix 40 mg twice daily for next 2 weeks followed by once daily. Take Carafate with meals and at nighttime for next 14 days. Eliquis is the blood thinner you will be on going forward. Take 2.5 mg twice daily. Please follow-up with a primary care provider within next 1 week for repeat CBC and CMP. Discharge Attestations Time Spent in Discharge Care*: greater than 30 min Specific Discharge Activities: educating patient, educating and/or supporting family/caregiver, discussing with pcp/other providers, discussing with window caser/social workers/dc planners, documenting/other paperwork and evaluating patient/reviewing data Time Spent in Smoking Cessation: more than 10 minutes Status at Discharge: Cognitive status at discharge: cognitively intact , Behavioral status at discharge: can be uncooperative , Functional status at discharge: independent ambulation , Overall status at discharge: patient is progressing back to baseline Quality Metrics Clinical Quality Measures [ No reported AMI, CVA or VTE this stay] Coding Level of Care Code 22118 Total time (in minutes) for Discharge: 50 Diagnoses Hypoxia R09.02 Congestive heart failure I50.9 Heart failure type: combined systolic and diastolic COPD (chronic obstructive pulmonary disease) J44.9 Atrial fibrillation with rapid ventricular response I48.91 Leg edema R60.0 Osteoporosis M81.0 Primary hyperparathyroidism E21.0 Malignant neoplasm of ascending colon C18.2 Fatigue R53.83 Chest pain R07.9 Positive occult stool blood test R19.5
--- NOTE | 2022-09-29 12:33 | PC.NURSE ---
Meds to beds arranged via pharmacy. Pending arrival of mediations for d/c
--- NOTE | 2022-09-29 15:03 | PC.NURSE ---
Discharge Note Patient discharged to home via POV accompanied by daughter. Discharge instructions reviewed with patient and/or outside medical sales representative. Mobile pharmacy medications and/or prescriptions provided. Belongings/home medications returned.
[2022-09-30 13:04] LABS: Clostridium Difficile PCR NOT DETECTED (NOT DETECTED)
[2022-10-08 11:53] LABS: Miscellaneous Test SEE COMMENTS
== END 2022-09-29 13:30 | disposition home health service (06) | DRG 291 ==
LOC: ER 01:37 → CSU 02:55
PROVIDERS: Internal Medicine; Admitting Provider Internal Medicine; Emergency Provider Emergency Medicine; PCP Nurse Practitioner Family; Visit Provider Student in an Organized Health Care Education/Training Program
DX: I11.0 Hypertensive heart disease with heart failure (principal); I50.43 Acute on chronic combined systolic (congestive) and diastolic (congestive) heart failure; J44.1 Chronic obstructive pulmonary disease with (acute) exacerbation; F17.210 Nicotine dependence, cigarettes, uncomplicated; Z99.81 Dependence on supplemental oxygen; F32.A Depression, unspecified; F41.9 Anxiety disorder, unspecified; M81.0 Age-related osteoporosis without current pathological fracture; E21.3 Hyperparathyroidism, unspecified; D64.9 Anemia, unspecified; R09.02 Hypoxemia; I48.91 Unspecified atrial fibrillation; Z79.01 Long term (current) use of anticoagulants; R19.5 Other fecal abnormalities
CPT/HCPCS: 36591; 71045; 80048; 80053; 80061; 82274; 82607; 82728; 82746; 83036; 83540; 83550; 83605; 83630; 83735; 83880; 84145; 84443; 84484; 85025; 85610; 87045; 87177; 87209; 87427; 87449; 87493; 93005; 93306; 94640; 94664; 96372; 96374; 96375; 96376; 99285; G0378; J0282; J1100; J1644; J1650; J1940; J3475; J3490; J7060; J7613; J7614; J7626; J7644

== ENCOUNTER → 2022-12-09 16:37 | Outpatient (BNVA) | payer MEDICARE, SELFPAY | PROVIDERS: PCP Nurse Practitioner Family; Visit Provider Nurse Practitioner Family | DX: D64.9 Anemia, unspecified (principal); E21.3 Hyperparathyroidism, unspecified; R79.9 Abnormal finding of blood chemistry, unspecified | CPT/HCPCS: 80053; 85025 ==

== ENCOUNTER → 2023-01-27 11:45 | Outpatient (BNVA) | payer MEDICARE, SELFPAY | PROVIDERS: PCP Nurse Practitioner Family; Visit Provider Nurse Practitioner Family | DX: Z23 Encounter for immunization (principal); M81.0 Age-related osteoporosis without current pathological fracture; Z79.899 Other long term (current) drug therapy | CPT/HCPCS: 80053 ==

== ENCOUNTER → 2023-07-15 10:40 | Outpatient (BNVA) | payer MEDICARE, SELFPAY | PROVIDERS: PCP Nurse Practitioner Family; Visit Provider Nurse Practitioner Family | DX: I10 Essential (primary) hypertension (principal); E21.3 Hyperparathyroidism, unspecified; D64.9 Anemia, unspecified | CPT/HCPCS: 80053; 80061; 84439; 84443; 85025 ==

== ENCOUNTER → 2024-10-12 10:05 | Outpatient (BNVA) | payer MEDICARE, SELFPAY | PROVIDERS: PCP Family Medicine; Visit Provider Nurse Practitioner Family | DX: I48.91 Unspecified atrial fibrillation (principal); M81.0 Age-related osteoporosis without current pathological fracture; E53.8 Deficiency of other specified B group vitamins; I50.42 Chronic combined systolic (congestive) and diastolic (congestive) heart failure | CPT/HCPCS: 80053; 80061; 82306; 82607; 84443; 85025 ==